=== PATIENT | male | born 1950 | race Native Hawaiian/Other Pacific Islander ===

== ENCOUNTER 2017-04-13 13:43 | Inpatient (IN) | payer OTHER ==
[2017-04-13 13:55] VITALS: BMI 20.6
--- NOTE | 2017-04-13 14:30 | ED PDOC ---
Arrival/HPI - General Historian: Patient - History of Present Illness Time/Duration: Prior to Arrival Symptom Onset: Sudden Symptom Course: Other Context: Home - General Chief Complaint: Abnormal Labs Time Seen by Provider: 04/13/17 14:06 - History of Present Illness Narrative History of Present Illness (Text): 04/13/17 14:27 66 year old female with past medical history of tonsilar carcinoma, CKD stage III, HTN, HLD, CAD s/p PCI, gout, recent PEG removal presents for hyperkalemia. Patient states that he was seen by transverse abdominal muscle surgeon yesterday who sergio blood work. The results of the blood work came back today and showed elevated K. Patient was told to go to ED. Patient was treated with chemo and radiation 8 months ago for tonsilar carcinoma. Patient had recent EGD 1.5 months ago with removal of PEG tube. (Shavon Owens) Past Medical History - Provider Review Nursing Documentation Reviewed: Yes - Travel History Have you recently traveled outside [place] w/in the past 3 mons?: No - Infectious Disease Hx of Infectious Diseases: None - Tetanus Immunization Tetanus Immunization: Unknown - Cardiac Hx Cardiac Disorders: Yes Hx PR: No Hx Hypertension: Yes Other/Comment: cardiac sent placed - Pulmonary Hx Respiratory Disorders: Yes (TONSIL CA STAGE 4) Other/Comment: LUNG LESION - Neurological Hx Neurological Disorder: Yes HX Cerebrovascular Accident: No Hx Dizziness: Yes Hx Syncope: Yes Hx Transient Ischemic Attacks (TIA): No - HEENT Hx HEENT Disorder: Yes Other/Comment: H/O CA OF TONSILS - Renal Hx Renal Disorder: No - Endocrine/Metabolic Hx Endocrine Disorders: Yes Hx Diabetes Mellitus Type 2: Yes - Hematological/Oncological Hx Blood Disorders: Yes Hx Blood Transfusions: No Hx Blood Transfusion Reaction: No Hx Cancer: Yes Hx Chemotherapy: Yes (AND RADIATION 2016) - Integumentary Hx Dermatological Disorder: Yes - Musculoskeletal/Rheumatological Hx Musculoskeletal Disorders: Yes Hx Falls: No Hx Fractures: No Hx Gout: Yes - Gastrointestinal Hx Gastrointestinal Disorders: Yes Other/Comment: H/O CA OF TONSILS - Genitourinary/Gynecological Hx Genitourinary Disorders: No - Psychiatric Hx Psychophysiologic Disorder: Yes Hx Depression: Yes Hx Substance Use: No - Surgical History Hx Cardiac Catheterization: Yes Hx Coronary Stent: Yes Other/Comment: PEG reverse - Anesthesia Hx Anesthesia: Yes Hx Anesthesia Reactions: No Hx Malignant Hyperthermia: No Family/Social History - Physician Review Nursing Documentation Reviewed: Yes Family/Social History: Unknown Family HX Smoking Status: Never Smoked Hx Alcohol Use: No Hx Substance Use: No Allergies/Home Meds Allergies/Adverse Reactions: Allergies No Known Allergies Allergy (Verified 04/13/17 13:55) Home Medications: Home Meds Medication Instructions Recorded Confirmed Colchicine [Mitigare] 0.6 mg PEG BID 04/30/16 04/13/17 Gabapentin 300 mg PO TID 04/30/16 04/13/17 DULoxetine [Cymbalta] 60 mg PO DAILY 08/02/16 04/13/17 Losartan [Cozaar] 50 mg PO DAILY 10/27/16 04/13/17 Clopidogrel [Plavix] 75 mg PO DAILY 04/13/17 04/13/17 Review of Systems - Review of Systems Constitutional: Normal. absent: Weight Change Eyes: Normal. absent: Vision Changes ENT: Normal. absent: Sore Throat, Rhinorrhea Respiratory: Normal. absent: SOB, Cough, Sputum, Wheezing Cardiovascular: Normal. absent: Chest Pain, Palpitations Gastrointestinal: Normal. absent: Abdominal Pain, Constipation, Diarrhea, Nausea, Vomiting Genitourinary Male: Normal. absent: Dysuria, Frequency, Hematuria Musculoskeletal: Normal. absent: Arthralgias, Back Pain Skin: Normal. absent: Rash, Pruritis, Skin Lesions Neurological: Normal. absent: Headache, Dizziness, Focal Weakness Endocrine: Normal. absent: Diaphoresis Hemo/Lymphatic: Normal. absent: Adenopathy Psychiatric: Normal. absent: Anxiety, Depression Physical Exam Vital Signs Reviewed: Yes Temperature: Afebrile Blood Pressure: Hypotensive Pulse: Regular Respiratory Rate: Normal Appearance: Positive for: Well-Appearing, Non-Toxic, Comfortable Pain Distress: None Mental Status: Positive for: Alert and Oriented X 3 - Systems Exam Head: Present: Atraumatic, Normocephalic Pupils: Present: PERRL Extroacular Muscles: Present: EOMI Conjunctiva: Present: Normal Mouth: Present: Moist Mucous Membranes Respiratory/Chest: Present: Clear to Auscultation, Good Air Exchange. No: Respiratory Distress, Accessory Muscle Use, Wheezes Cardiovascular: Present: Regular Rate and Rhythm, Normal S1, S2, Peripheal Pulses Present. No: Murmurs Abdomen: Present: Normal Bowel Sounds. No: Tenderness, Distention, Peritoneal Signs Lower Extremity: Present: Normal Inspection, NORMAL PULSES. No: Edema, CALF TENDERNESS Neurological: Present: GCS=15, Speech Normal Skin: Present: Warm, Dry, Normal Color. No: Rashes, Diaphoretic Psychiatric: Present: Alert, Oriented x 3, Normal Insight, Normal Concentration Medical Decision Making - EKG Interpretation Interpreted by ED Physician: Yes Type: 12 lead EKG ED Course and Treatment: 04/13/17 14:36 66 year old male presents for hyperkalemia found on outpatient blood work. Will check: EKG CBC BMP 04/13/17 16:27 K on blood work is noted to be 6.3 Patient will be given insulin 10 units with amp of D50 and kayexelate. No EKG changes noted so will not give calcium gluconate at this time. 04/13/17 16:[address] Kimbrough who accepts patient to hospitalists service with admission to tele floor (Shavon Owens) 04/13/17 17:34 Agree with resident history and physical, disposition and plan. Patient currently has no symptoms. Labs show elevated potassium with newly elevated BUN/ Cr. Patient also with new pancytopenia. Case was discussed with Dr. Kimbrough who will admit to his service. (Jairo Chawla) - Lab Interpretations Narrative Lab Interpretation (Text): 04/13/17 16:52 CBC shows pancytopenia. WBC 2.1 Hgb 8.1 Platelets of 79 K is noted to be 6.3 (Shavon Owens) Lab Results: 04/13/17 15:15 04/13/17 15:15 Lab Results 04/13/17 15:15: Magnesium 1.8 04/13/17 15:15: Sodium 133, Potassium 6.3 H* D, Chloride 102, Carbon Dioxide 21 , Anion Gap 16, BUN 43 H, Creatinine 2.3 H, Est GFR ( Amer) 35, Est GFR ( Non-Af Amer) 29, Random Glucose 108, Calcium 9.1 04/13/17 15:15: WBC 2.1 L* D, RBC 3.05 L, Hgb 8.1 L, Hct 24.5 L, MCV 80.3, MCH 26.6, MCHC 33.1, RDW 15.1 H, Plt Count 79 L - EKG Interpretation EKG Interpretation (Text): 04/13/17 14:[address] changes. normal axis and normal interval. LVh noted. No peaked T waves noted (Karim,Shavon) - Medication Orders Current Medication Orders: Discontinued Medications Albuterol/Ipratropium (Duoneb 3 Mg/0.5 Mg (3 Ml) Ud) 3 ml IH STAT STA Stop: 04/13/17 16:53 Dextrose (Dextrose 50% Inj) 50 ml IVP STAT STA Stop: 04/13/17 16:14 Last Admin: 04/13/17 16:36 Dose: 50 ml Insulin Human NPH (Humulin N) 10 units SC STAT STA Stop: 04/13/17 16:13 Last Admin: 04/13/17 16:36 Dose: 10 units Sodium Polystyrene Sulfonate (Kayexalate Oral Susp) 30 gm PO STAT STA Stop: 04/13/17 16:14 Last Admin: 04/13/17 16:36 Dose: 30 gm Disposition/Present on Arrival - Present on Arrival Any Indicators Present on Arrival: No History of DVT/PE: No History of Uncontrolled Diabetes: No Urinary Catheter: No History of Decub. Ulcer: No History Surgical Site Infection Following: None - Disposition Have Diagnosis and Disposition been Completed?: Yes Disposition Time: 16:58 Patient Plan: Admission - Disposition Diagnosis: Pancytopenia, Hyperkalemia Disposition: HOSPITALIZED Condition: STABLE
[2017-04-13 15:54] LABS: HEMOGLOBIN 8.1 g/dL (14.0-18.0); MEAN CELL VOLUME 80.3 fl (80.0-105.0); MEAN CORPUSCULAR HEMOGLOBIN 26.6 pg (25.0-35.0); MEAN CORPUSCULAR HGB CONC 33.1 g/dl (31.0-37.0); PLATELET COUNT 79 10^3/uL (120.0-450.0); RBC 3.05 10^6/uL (3.5-6.1); RED CELL DISTRIBUTION WIDTH 15.1 % (11.5-14.5)
[2017-04-13 15:59] LABS: CALCIUM 9.1 mg/dL (8.4-10.5)
[2017-04-13] MEDS ORDERED: Insulin Human NPH 1 UNITS/0.01 ML SC STA (16:12)
[2017-04-13] MEDS ORDERED: Dextrose 50% SYRINGE Inj (50 ml) IVP STA (16:13)
[2017-04-13] MEDS ORDERED: Sod Polystyrene Sulf 15 gm/60 ml Oral Susp PO STA (16:13)
[2017-04-13 16:30] LABS: WHITE BLOOD COUNT 2.1 10^3/ul (4.5-11.0)
[2017-04-13] MEDS ORDERED: Albuterol-Ipratrop 3 mg / 0.5 (3 ml) UD IH STA (16:52)
--- NOTE | 2017-04-13 18:32 | CP.PCM.HP ---
Past Patient History - Infectious Disease Hx of Infectious Diseases: None - Tetanus Immunizations Tetanus Immunization: Unknown - Past Medical History & Family History Past Medical History?: Yes - Past Social History Smoking Status: Never Smoked - CARDIAC Hx Cardiac Disorders: Yes Hx Heart Attack: No Hx Hypertension: Yes Other/Comment: cardiac sent placed - PULMONARY Hx Respiratory Disorders: Yes (TONSIL CA STAGE 4) Other/Comment: LUNG LESION - NEUROLOGICAL Hx Neurological Disorder: Yes HX Cerebrovascular Accident: No Hx Dizziness: Yes Hx Syncope: Yes Hx Transient Ischemic Attacks (TIA): No - HEENT Hx HEENT Problems: Yes Other/Comment: H/O CA OF TONSILS - RENAL Hx Chronic Kidney Disease: No - ENDOCRINE/METABOLIC Hx Endocrine Disorders: Yes Hx Diabetes Mellitus Type 2: Yes - HEMATOLOGICAL/ONCOLOGICAL Hx Blood Disorders: Yes Hx Blood Transfusions: No Hx Blood Transfusion Reaction: No Hx Cancer: Yes Hx Chemotherapy: Yes (AND RADIATION 2016) - INTEGUMENTARY Hx Dermatological Problems: Yes - MUSCULOSKELETAL/RHEUMATOLOGICAL Hx Musculoskeletal Disorders: Yes Hx Falls: No Hx Fractures: No Hx Gout: Yes - GASTROINTESTINAL Hx Gastrointestinal Disorders: Yes Other/Comment: H/O CA OF TONSILS - GENITOURINARY/GYNECOLOGICAL Hx Genitourinary Disorders: No - PSYCHIATRIC Hx Psychophysiologic Disorder: Yes Hx Depression: Yes Hx Substance Use: No - SURGICAL HISTORY Hx Cardiac Catheterization: Yes Hx Coronary Stent: Yes Other/Comment: PEG reverse - ANESTHESIA Hx Anesthesia: Yes Hx Anesthesia Reactions: No Hx Malignant Hyperthermia: No Meds Allergies/Adverse Reactions: Allergies Allergy/AdvReac Type Severity Reaction Status Date / Time No Known Allergies Allergy Verified 04/13/17 18:31 Results - Vital Signs Recent Vital Signs: Last Vital Signs Temp 97.9 F 04/13/17 18:05 Pulse 65 04/13/17 18:05 Resp 12 04/13/17 18:05 BP 114/80 04/13/17 18:05 Pulse Ox 100 04/13/17 18:05 - Labs Result Diagrams: 04/13/17 15:15 04/13/17 15:15
[2017-04-13] MEDS ORDERED: Sodium Chloride 0.9% 1,000 ML IV SCH (18:45)
--- NOTE | 2017-04-13 18:54 | CP.PCM.HP ---
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 Patient reports that he had lab work drawn yesterday, was told that his potassium levels were elevated and that he needed to go to the ED immediately. Patient has no complaints at this time. Denies any headaches, dizziness, visual changes, CP, SOB, abdominal pain, nausea /vomiting, fevers, chills, urinary symptoms, melena. Patient denies any recent chemotherapy. Potassium in the noted to be 6.3. EKG showed NSR, no peaked T waves. ED course: Insulin 10 units, 1 amp D50, Kayexylate 30mg x 1, Albuterol Allergies: NKDA Medications: See MAR Medical Hx: HTN, CKD, CAD s/p PCI, stage 4 tonsillar carcinoma, DM type 2 Surgical Hx: Peg tube placement and removal Social Hx: Denies alcohol, tobacco, drugs use, lives with family Present on Admission - Present on Admission Any Indicators Present on Admission: No History of DVT/PE: No History of Uncontrolled Diabetes: No Urinary Catheter: No Decubitus Ulcer Present: No Review of Systems - Review of Systems All systems: reviewed and no additional remarkable complaints except - Constitutional Constitutional: absent: Chills, Fever, Headache, Weight Gain, Weight Loss - EENT Eyes: absent: Change in Vision Ears: absent: Dizziness - Cardiovascular Cardiovascular: absent: Chest Pain, Dyspnea, Palpitations - Respiratory Respiratory: absent: Cough, Dyspnea, Wheezing - Gastrointestinal Gastrointestinal: absent: Abdominal Pain, Diarrhea, Nausea, Vomiting - Genitourinary Genitourinary: absent: Dysuria, Hematuria - Musculoskeletal Musculoskeletal: absent: Abnormal Gait, Neck Pain, Numbness, Tingling - Neurological Neurological: absent: Dizziness, Numbness, Headaches, Weakness - Psychiatric Psychiatric: absent: Anxiety, Depression Past Patient History - Infectious Disease Hx of Infectious Diseases: None - Tetanus Immunizations Tetanus Immunization: Unknown - Past Medical History & Family History Past Medical History?: Yes - Past Social History Smoking Status: Never Smoked - CARDIAC Hx Cardiac Disorders: Yes Hx Heart Attack: No Hx Hypertension: Yes Other/Comment: cardiac sent placed - PULMONARY Hx Respiratory Disorders: Yes (TONSIL CA STAGE 4) Other/Comment: LUNG LESION - NEUROLOGICAL Hx Neurological Disorder: Yes HX Cerebrovascular Accident: No Hx Dizziness: Yes Hx Syncope: Yes Hx Transient Ischemic Attacks (TIA): No - HEENT Hx HEENT Problems: Yes Other/Comment: H/O CA OF TONSILS - RENAL Hx Chronic Kidney Disease: No - ENDOCRINE/METABOLIC Hx Endocrine Disorders: Yes Hx Diabetes Mellitus Type 2: Yes - HEMATOLOGICAL/ONCOLOGICAL Hx Blood Disorders: Yes Hx Blood Transfusions: No Hx Blood Transfusion Reaction: No Hx Cancer: Yes Hx Chemotherapy: Yes (AND RADIATION 2016) - INTEGUMENTARY Hx Dermatological Problems: Yes - MUSCULOSKELETAL/RHEUMATOLOGICAL Hx Musculoskeletal Disorders: Yes Hx Falls: No Hx Fractures: No Hx Gout: Yes - GASTROINTESTINAL Hx Gastrointestinal Disorders: Yes Other/Comment: H/O CA OF TONSILS - GENITOURINARY/GYNECOLOGICAL Hx Genitourinary Disorders: No - PSYCHIATRIC Hx Psychophysiologic Disorder: Yes Hx Depression: Yes Hx Substance Use: No - SURGICAL HISTORY Hx Cardiac Catheterization: Yes Hx Coronary Stent: Yes Other/Comment: PEG reverse - ANESTHESIA Hx Anesthesia: Yes Hx Anesthesia Reactions: No Hx Malignant Hyperthermia: No Meds Allergies/Adverse Reactions: Allergies Allergy/AdvReac Type Severity Reaction Status Date / Time No Known Allergies Allergy Verified 04/13/17 18:36 Physical Exam - Constitutional Appears: Well, No Acute Distress - Head Exam Head Exam: ATRAUMATIC, NORMAL INSPECTION - Eye Exam Eye Exam: EOMI, Normal appearance Pupil Exam: NORMAL ACCOMODATION Additional comments: + Conjuctival pallor - ENT Exam ENT Exam: Mucous Membranes Moist - Neck Exam Neck exam: Positive for: Full Rom - Respiratory Exam Respiratory Exam: Clear to Auscultation Bilateral, NORMAL BREATHING PATTERN. absent: Rales, Rhonchi, Wheezes - Cardiovascular Exam Cardiovascular Exam: REGULAR RHYTHM, +S1, +S2 - GI/Abdominal Exam GI & Abdominal Exam: Normal Bowel Sounds, Soft. absent: Distended, Rebound, Rigid - Extremities Exam Extremities exam: Positive for: normal inspection, pedal pulses present. Negative for: calf tenderness - Back Exam Back exam: NORMAL INSPECTION - Neurological Exam Neurological exam: Alert, CN II-XII Intact, Oriented x3 - Psychiatric Exam Psychiatric exam: Normal Affect, Normal Mood - Skin Skin Exam: Normal Color, Warm Results - Vital Signs Recent Vital Signs: Last Vital Signs Temp 97.9 F 04/13/17 18:05 Pulse 65 04/13/17 18:05 Resp 12 04/13/17 18:05 BP 114/80 04/13/17 18:05 Pulse Ox 100 04/13/17 18:05 - Labs Result Diagrams: 04/13/17 15:15 04/13/17 15:15 Assessment & Plan - Assessment and Plan (Free Text) Assessment: 66 yo male pmhx of stage 4 tonsil CA, CKD, HTN, CAD s/p PCI on Plavix presents with Hyperkalemia Plan: 1. Hyperkalemia -Potassium 6.3 on admission, likely secondary to acute on chronic kidney disease -EKG showing NSR, no peaked T waves -Denies recent NSAID use -Recieved kayexylate, insulin, amp D50, albuterol in the ED -Will repeat potassium in 4 hours -F/U am labs -Monitor on telemetry -Will hold Losartan at this time 2. Acute on Chronic Kidney Disease, likely 2/2 dehydration -Baseline Cr 1.6, Cr on admission 2.3 -F/U urine electrolytes, urinalysis -Gentle hydration NS @ 75cc/hr -F/U am labs -Avoid nephrotoxic medications 3. Pancytopenia -Hx of tonsillar CA, Denies recent chemotherapy -Likely secondary to bone marrow suppression -Calculate Absolute Neutrophil count (ANC) -F/U retic count, anemia work up, peripheral blood smear -Heme/Onc consulted, f/u recommendations 4. Hx of Hypertension -Patient on Losartan at home -In the setting of hyperkalemia and acute on chronic kidney disease, will hold Losartan -BPs on the low side currently -Gentle hydration with NS @ 75cc/hr -If BPs become elevated, consider restarting beta topher -Continue to monitor vitals 5. Hx of CAD with PCI -Will continue Plavix 75 mg daily 6. Hx of DM type 2 -Accuchecks HS, ISS -Gabapentin TID for peripheral neuropathy 7. Stage 4 Tonsillar Carcinoma -S/P chemo and radiation -Heme/onc on consult, f/u recommendations 8. GI/DVT ppx -Pepcid -SCDs Jeni Deng PGY-1 <Luis E PARTIDA,Tony - Last Filed: 04/14/17 15:08> Results - Vital Signs Recent Vital Signs: Last Vital Signs Temp 98 F 04/14/17 12:00 Pulse 90 04/14/17 12:12 Resp 18 04/14/17 12:00 BP 138/75 04/14/17 12:12 Pulse Ox 100 04/14/17 07:30 - Labs Result Diagrams: 04/14/17 04:10 04/14/17 14:40 Labs: Laboratory Results - last 24 hr 04/13/17 04/13/17 04/13/17 21:22 21:50 22:29 WBC RBC Hgb Hct MCV MCH MCHC RDW Plt Count Gran % Lymph % (Auto) [place] % (Auto) Eos % (Auto) Baso % (Auto) Gran # Lymph # [place] # Eos # Baso # Neutrophils % (Manual) Band Neutrophils % Lymphocytes % (Manual) Atypical Lymphs % Monocytes % (Manual) Eosinophils % (Manual) Basophils % (Manual) Platelet Evaluation Poikilocytosis (manual Anisocytosis (manual) Microcytosis (manual) Tear Drop Cells Ovalocytes Retic Count Sodium 137 Potassium 6.0 H* Chloride 106 Carbon Dioxide 19 L Anion Gap 18 BUN 40 H Creatinine 2.0 H Est GFR ( Amer) 41 Est GFR (Non-Af Amer) 34 POC Glucose (mg/dL) 50 L 76 Random Glucose 75 Calcium 9.4 Phosphorus Magnesium Iron TIBC % Saturation Ferritin Total Bilirubin AST ALT Alkaline Phosphatase Total Creatine Kinase Total Protein Albumin Globulin Albumin/Globulin Ratio Vitamin B12 Folate Urine Color Urine Appearance Urine pH Ur Specific Drummonds Urine Protein Urine Glucose (UA) Urine Ketones Urine Blood Urine Nitrate Urine Bilirubin Urine Urobilinogen Ur Leukocyte Esterase Ur Random Creatinine Ur Random Sodium 04/14/17 04/14/17 04/14/17 01:00 01:00 01:00 WBC RBC Hgb Hct MCV MCH MCHC RDW Plt Count Gran % Lymph % (Auto) [place] % (Auto) Eos % (Auto) Baso % (Auto) Gran # Lymph # [place] # Eos # Baso # Neutrophils % (Manual) Band Neutrophils % Lymphocytes % (Manual) Atypical Lymphs % Monocytes % (Manual) Eosinophils % (Manual) Basophils % (Manual) Platelet Evaluation Poikilocytosis (manual Anisocytosis (manual) Microcytosis (manual) Tear Drop Cells Ovalocytes Retic Count Sodium Potassium Chloride Carbon Dioxide Anion Gap BUN Creatinine Est GFR ( Amer) Est GFR (Non-Af Amer) POC Glucose (mg/dL) Random Glucose Calcium Phosphorus Magnesium Iron TIBC % Saturation Ferritin Total Bilirubin AST ALT Alkaline Phosphatase Total Creatine Kinase Total Protein Albumin Globulin Albumin/Globulin Ratio Vitamin B12 Folate Urine Color Yellow Urine Appearance Clear Urine pH 6.0 Ur Specific Drummond[place] <= 1.005 Urine Protein Negative Urine Glucose (UA) Negative Urine Ketones Negative Urine Blood Negative Urine Nitrate Negative Urine Bilirubin Negative Urine Urobilinogen 0.2 Ur Leukocyte Esterase Negative Ur Random Creatinine 28 Ur Random Sodium 63 04/14/17 04/14/17 04/14/17 04:10 04:10 04:10 WBC 2.1 L* RBC 3.24 L Hgb 8.5 L Hct 25.9 L MCV 79.9 L MCH 26.2 MCHC 32.8 RDW 15.2 H Plt Count 79 L Gran % Featherer Lymph % (Auto) Featherer Sheridan % (Auto) Featherer Eos % (Auto) Featherer Baso % (Auto) Featherer Gran # Featherer Lymph # Featherer Sheridan # Featherer Eos # Featherer Baso # Featherer Neutrophils % (Manual) 75 H Band Neutrophils % 1 Lymphocytes % (Manual) 9 L Atypical Lymphs % 1 H Monocytes % (Manual) 4 Eosinophils % (Manual) 8 H Basophils % (Manual) 2 H Platelet Evaluation Low Poikilocytosis (manual 1+ Anisocytosis (manual) Slight Microcytosis (manual) 1+ Tear Drop Cells Slight Ovalocytes Slight Retic Count 0.62 Sodium 139 Potassium 5.9 H* Chloride 108 H Carbon Dioxide 21 Anion Gap 16 BUN 35 H Creatinine 1.9 H Est GFR ( Amer) 43 Est GFR (Non-Af Amer) 36 POC Glucose (mg/dL) Random Glucose 81 Calcium 9.4 Phosphorus 5.3 H Magnesium 1.8 Iron TIBC % Saturation Ferritin 93.3 Total Bilirubin 0.3 AST 31 ALT 50 Alkaline Phosphatase 89 Total Creatine Kinase Total Protein 7.2 Albumin 3.9 Globulin 3.3 Albumin/Globulin Ratio 1.2 Vitamin B12 732 Folate 10.1 Urine Color Urine Appearance Urine pH Ur Specific Drummond[place] Urine Protein Urine Glucose (UA) Urine Ketones Urine Blood Urine Nitrate Urine Bilirubin Urine Urobilinogen Ur Leukocyte Esterase Ur Random Creatinine Ur Random Sodium 04/14/17 04/14/17 04/14/17 04:10 07:22 10:06 WBC RBC Hgb Hct MCV MCH MCHC RDW Plt Count Gran % Lymph % (Auto) [place] % (Auto) Eos % (Auto) Baso % (Auto) Gran # Lymph # [place] # Eos # Baso # Neutrophils % (Manual) Band Neutrophils % Lymphocytes % (Manual) Atypical Lymphs % Monocytes % (Manual) Eosinophils % (Manual) Basophils % (Manual) Platelet Evaluation Poikilocytosis (manual Anisocytosis (manual) Microcytosis (manual) Tear Drop Cells Ovalocytes Retic Count Sodium Potassium Chloride Carbon Dioxide Anion Gap BUN Creatinine Est GFR ( Amer) Est GFR (Non-Af Amer) POC Glucose (mg/dL) 86 130 H Random Glucose Calcium Phosphorus Magnesium Iron 55 TIBC 289 % Saturation 19 L Ferritin Total Bilirubin AST ALT Alkaline Phosphatase Total Creatine Kinase Total Protein Albumin Globulin Albumin/Globulin Ratio Vitamin B12 Folate Urine Color Urine Appearance Urine pH Ur Specific [place] Urine Protein Urine Glucose (UA) Urine Ketones Urine Blood Urine Nitrate Urine Bilirubin Urine Urobilinogen Ur Leukocyte Esterase Ur Random Creatinine Ur Random Sodium 04/14/17 04/14/17 11:36 14:40 WBC RBC Hgb Hct MCV MCH MCHC RDW Plt Count Gran % Lymph % (Auto) [place] % (Auto) Eos % (Auto) Baso % (Auto) Gran # Lymph # [place] # Eos # Baso # Neutrophils % (Manual) Band Neutrophils % Lymphocytes % (Manual) Atypical Lymphs % Monocytes % (Manual) Eosinophils % (Manual) Basophils % (Manual) Platelet Evaluation Poikilocytosis (manual Anisocytosis (manual) Microcytosis (manual) Tear Drop Cells Ovalocytes Retic Count Sodium 137 Potassium 5.2 H Chloride 108 H Carbon Dioxide 20 L Anion Gap 14 BUN 31 H Creatinine 1.8 H Est GFR ( Amer) 46 Est GFR (Non-Af Amer) 38 POC Glucose (mg/dL) 89 Random Glucose 105 Calcium 8.7 Phosphorus Magnesium Iron TIBC % Saturation Ferritin Total Bilirubin AST ALT Alkaline Phosphatase Total Creatine Kinase 85 Total Protein Albumin Globulin Albumin/Globulin Ratio Vitamin B12 Folate Urine Color Urine Appearance Urine pH Ur Specific [place] Urine Protein Urine Glucose (UA) Urine Ketones Urine Blood Urine Nitrate Urine Bilirubin Urine Urobilinogen Ur Leukocyte Esterase Ur Random Creatinine Ur Random Sodium Attending/Attestation - Attestation I have personally seen and examined this patient.: Yes I have fully participated in the care of the patient.: Yes I have reviewed all pertinent clinical information: Yes Notes (Text): 04/14/17 15:05 Patient was seen and examined with medical claims representative. 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 We will check Reticulocyte count, LDH level, Peripheral smear and will also get Hematology consultation for the evaluation of Pancytopenia. Management plan was discussed in detail with patient Education was provided.
[2017-04-13 21:49] LABS: CALCIUM 9.4 mg/dL (8.4-10.5)
[2017-04-13] MEDS: Insulin Lispro (humaLOG) LOW Coverage SC SCH (22:00)
[2017-04-13] MEDS ORDERED: Pneumococcal 23-Valent Vaccine IM ONE (22:50)
--- NOTE | 2017-04-14 00:21 | CARD ---
APPROVED REPORT EKG Measurement Heart [id number] <Conclusion> Normal sinus rhythm Minimal voltage criteria for LVH, may be normal variant Borderline ECG
[2017-04-14 02:50] LABS: URINE BILIRUBIN NEGATIVE (NEGATIVE); URINE BLOOD NEGATIVE (NEGATIVE); URINE GLUCOSE (UA) NEGATIVE (NEGATIVE); URINE LEUKOCYTE ESTERASE NEGATIVE Leu/uL (NEGATIVE); URINE NITRATE NEGATIVE (NEGATIVE); URINE PROTEIN NEGATIVE mg/dL (<30 mg/dL); URINE UROBILINOGEN 0.2 E.U./dL (<1 E.U./dL)
[2017-04-14 02:52] LABS: URINE APPEARANCE CLEAR (CLEAR); URINE COLOR YELLOW (YELLOW)
[2017-04-14 06:21] VITALS: O2SAT 100
[2017-04-14] MEDS ORDERED: Dextrose 5%/0.9% NS 1,000 ML IV SCH (06:30)
[2017-04-14 06:41] LABS: HEMOGLOBIN 8.5 g/dL (14.0-18.0); MEAN CELL VOLUME 79.9 fl (80.0-105.0); MEAN CORPUSCULAR HEMOGLOBIN 26.2 pg (25.0-35.0); MEAN CORPUSCULAR HGB CONC 32.8 g/dl (31.0-37.0); PLATELET COUNT 79 10^3/uL (120.0-450.0); RBC 3.24 10^6/uL (3.5-6.1); RED CELL DISTRIBUTION WIDTH 15.2 % (11.5-14.5)
[2017-04-14 06:51] LABS: ALBUMIN 3.9 g/dL (3.0-4.8); CALCIUM 9.4 mg/dL (8.4-10.5); MAGNESIUM 1.8 mg/dL (1.7-2.2)
[2017-04-14 06:52] LABS: ALB/GLOB RATIO 1.2 (1.1-1.8)
[2017-04-14 06:59] LABS: % IRON SATURATION 19 % (20-55); IRON 55 ug/dL (45-180); TOTAL IRON BINDING CAPACITY 289 ug/dL (261-462)
[2017-04-14 07:00] LABS: WHITE BLOOD COUNT 2.1 10^3/ul (4.5-11.0)
[2017-04-14] MEDS: Albuterol-Ipratrop 3 mg / 0.5 (3 ml) UD IH SCH ×2 (07:25→11:26)
[2017-04-14] MEDS ORDERED: Dextrose 50% SYRINGE Inj (50 ml) IVP ONE (07:48)
[2017-04-14] MEDS ORDERED: Insulin Human NPH 1 UNITS/0.01 ML SC STA (07:49)
[2017-04-14] MEDS: Insulin Lispro (humaLOG) LOW Coverage SC SCH ×3 (08:20→17:40)
[2017-04-14] MEDS ORDERED: Sod Polystyrene Sulf 15 gm/60 ml Oral Susp PO ONE (08:47)
[2017-04-14 08:52] LABS: ATYPICAL LYMPHOCYTE 1 % (0.0-0.0); BAND 1 % (0-2); BASOPHIL 2 % (0.0-1.0); EOSINOPHIL 8 % (0.0-3.0); LYMPHOCYTE 9 % (22.0-35.0); MONOCYTE 4 % (1.0-6.0); NEUTROPHIL 75 % (50.0-70.0)
[2017-04-14 08:53] LABS: ANISOCYTOSIS SLIGHT; OVALOCYTES SLIGHT; PLATELET ESTIMATE LOW (NORMAL); POIKILOCYTOSIS 1+; TEAR DROP CELLS SLIGHT
[2017-04-14 08:54] LABS: MICROCYTOSIS 1+
[2017-04-14] MEDS: Dextrose 5%/0.9% NS 1,000 ML IV SCH ×2 (10:05→10:33)
[2017-04-14 11:36] VITALS: BP 138/75; RESP 18
[2017-04-14 12:28] VITALS: TEMP 98
[2017-04-14 12:40] LABS: FERRITIN 93.3 ng/mL
[2017-04-14 13:11] LABS: FOLATE 10.1 ng/mL
[2017-04-14 15:01] LABS: CALCIUM 8.7 mg/dL (8.4-10.5)
--- NOTE | 2017-04-14 15:22 | CP.PCM.DIS ---
<Jeni Deng - Last Filed: 04/14/17 16:11> Provider - Provider Date of Admission: 04/13/17 16:55 Attending physician: Tony Kimbrough MD Consults: Heme/Onc: Dr Brown Time Spent in preparation of Discharge (in minutes): 33 Hospital Course - Lab Results Lab Results: Most Recent Lab Values WBC 2.1 10^3/ul (4.5-11.0) L* 04/14/17 04:10 RBC 3.24 10^6/uL (3.5-6.1) L 04/14/17 04:10 Hgb 8.5 g/dL (14.0-18.0) L 04/14/17 04:10 Hct 25.9 % (42.0-52.0) L 04/14/17 04:10 MCV 79.9 fl (80.0-105.0) L 04/14/17 04:10 MCH 26.2 pg (25.0-35.0) 04/14/17 04:10 MCHC 32.8 g/dl (31.0-37.0) 04/14/17 04:10 RDW 15.2 % (11.5-14.5) H 04/14/17 04:10 Plt Count 79 10^3/uL (120.0-450.0) L 04/14/17 04:10 Gran % Special Procedures Technologist 04/14/17 04:10 Lymph % (Auto) Special Procedures Technologist 04/14/17 04:10 [place] % (Auto) Special Procedures Technologist 04/14/17 04:10 Eos % (Auto) Special Procedures Technologist 04/14/17 04:10 Baso % (Auto) Special Procedures Technologist 04/14/17 04:10 Gran # Special Procedures Technologist 04/14/17 04:10 Lymph # Special Procedures Technologist 04/14/17 04:10 [place] # Special Procedures Technologist 04/14/17 04:10 Eos # Special Procedures Technologist 04/14/17 04:10 Baso # Special Procedures Technologist 04/14/17 04:10 Neutrophils % (Manual) 75 % (50.0-70.0) H 04/14/17 04:10 Band Neutrophils % 1 % (0-2) 04/14/17 04:10 Lymphocytes % (Manual) 9 % (22.0-35.0) L 04/14/17 04:10 Atypical Lymphs % 1 % (0.0-0.0) H 04/14/17 04:10 Monocytes % (Manual) 4 % (1.0-6.0) 04/14/17 04:10 Eosinophils % (Manual) 8 % (0.0-3.0) H 04/14/17 04:10 Basophils % (Manual) 2 % (0.0-1.0) H 04/14/17 04:10 Platelet Evaluation Low (NORMAL) 04/14/17 04:10 Poikilocytosis (manual 1+ 04/14/17 04:10 Anisocytosis (manual) Slight 04/14/17 04:10 Microcytosis (manual) 1+ 04/14/17 04:10 Tear Drop Cells Slight 04/14/17 04:10 Ovalocytes Slight 04/14/17 04:10 Retic Count 0.62 % (0.5-1.5) 04/14/17 04:10 Sodium 137 mmol/L (132-148) 04/14/17 14:40 Potassium 5.2 mmol/L (3.6-5.0) H 04/14/17 14:40 Chloride 108 mmol/L (98-107) H 04/14/17 14:40 Carbon Dioxide 20 mmol/L (21-33) L 04/14/17 14:40 Anion Gap 14 (10-20) 04/14/17 14:40 BUN 31 mg/dL (7-21) H 04/14/17 14:40 Creatinine 1.8 mg/dL (0.5-1.4) H 04/14/17 14:40 Est GFR ( Amer) 46 04/14/17 14:40 Est GFR (Non-Af Amer) 38 04/14/17 14:40 POC Glucose (mg/dL) 89 mg/dL (65-110) 04/14/17 11:36 Random Glucose 105 mg/dL (70-110) 04/14/17 14:40 Calcium 8.7 mg/dL (8.4-10.5) 04/14/17 14:40 Phosphorus 5.3 mg/dL (2.5-4.5) H 04/14/17 04:10 Magnesium 1.8 mg/dL (1.7-2.2) 04/14/17 04:10 Iron 55 ug/dL (45-180) 04/14/17 04:10 TIBC 289 ug/dL (261-462) 04/14/17 04:10 % Saturation 19 % (20-55) L 04/14/17 04:10 Ferritin 93.3 ng/mL 04/14/17 04:10 Total Bilirubin 0.3 mg/dL (0.2-1.3) 04/14/17 04:10 AST 31 U/L (15-59) 04/14/17 04:10 ALT 50 U/L (7-56) 04/14/17 04:10 Alkaline Phosphatase 89 U/L (38-133) 04/14/17 04:10 Total Creatine Kinase 85 U/L (35-230) 04/14/17 14:40 Total Protein 7.2 g/dL (5.8-8.3) 04/14/17 04:10 Albumin 3.9 g/dL (3.0-4.8) 04/14/17 04:10 Globulin 3.3 gm/dL 04/14/17 04:10 Albumin/Globulin Ratio 1.2 (1.1-1.8) 04/14/17 04:10 Vitamin B12 732 pg/mL (239-931) 04/14/17 04:10 Folate 10.1 ng/mL 04/14/17 04:10 Urine Color Yellow (YELLOW) 04/14/17 01:00 Urine Appearance Clear (CLEAR) 04/14/17 01:00 Urine pH 6.0 (4.7-8.0) 04/14/17 01:00 Ur Specific [place] <= 1.005 (1.005-1.035) 04/14/17 01:00 Urine Protein Negative mg/dL (<30 mg/dL) 04/14/17 01:00 Urine Glucose (UA) Negative mg/dL (NEGATIVE) 04/14/17 01:00 Urine Ketones Negative mg/dL (NEGATIVE) 04/14/17 01:00 Urine Blood Negative (NEGATIVE) 04/14/17 01:00 Urine Nitrate Negative (NEGATIVE) 04/14/17 01:00 Urine Bilirubin Negative (NEGATIVE) 04/14/17 01:00 Urine Urobilinogen 0.2 E.U./dL (<1 E.U./dL) 04/14/17 01:00 Ur Leukocyte Esterase Negative Ivis/uL (NEGATIVE) 04/14/17 01:00 Ur Random Creatinine 28 mg/dL 04/14/17 01:00 Ur Random Sodium 63 meq/L 04/14/17 01:00 - Hospital Course Hospital Course: Patient is a 66 yo M with past medical hx of 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 Patient reports that he had lab work drawn yesterday, was told that his potassium levels were elevated and that he needed to go to the ED immediately. Patient has no complaints at this time. Denies any headaches, dizziness, visual changes, CP, SOB, abdominal pain, nausea /vomiting, fevers, chills, urinary symptoms, melena. Patient denies any recent chemotherapy. Potassium in the noted to be 6.3. EKG showed NSR, no peaked T waves. In the ED, patient was given Insulin 10 units, 1 amp D50, Kayexylate 30mg x 1, Albuterol. Patient was admitted for observation with telemetry. Patient was found to be pancytopenic. Heme/onc was consulted and on the case. Pancytopenia was stable, likely secondary to delayed bone marrow suppression as patient has received chemo and radiation in the past. Might need bone marrow biopsy as an outpatient , discussed with Dr Brown, patient is to follow up with him. Was found to have acute on chronic kidney disease. UA was negative. FeNa was calculated to be 3.3 % which suggests Intrinsic etiology. Cr improved with gentle hydration. For HTN , losartan was held and patient was started on Hydralazine 25mg QID. Repeat potassium was noted to be 6.0 then 5.9 subsequently. Patient was given insulin 10 units, albuterol treatment, 1 amp D50, and kayexylate. EKG at that time showed NSR, no peaked T waves. Patient remained asymptomatic. Potassium was later rechecked in the afternoon and was noted to be 5.2. On day of discharge, patient was medically stable. Instructed to discontinue Losartan and to continue Hydralazine 25mg TID for HTN. Patient also instructed to avoid foods rich in potassium. All questions and concerns were addressed. Discharge Exam - Head Exam Head Exam: ATRAUMATIC, NORMAL INSPECTION - Eye Exam Eye Exam: EOMI, Normal appearance Pupil Exam: NORMAL ACCOMODATION - ENT Exam ENT Exam: Mucous Membranes Moist - Neck Exam Neck exam: Full Rom - Respiratory Exam Respiratory Exam: Clear to PA & Lateral, NORMAL BREATHING PATTERN. absent: Rales, Rhonchi, Wheezes - Cardiovascular Exam Cardiovascular Exam: REGULAR RHYTHM, +S1, +S2 - GI/Abdominal Exam GI & Abdominal Exam: Normal Bowel Sounds, Soft. absent: Guarding, Rebound, Rigid - Extremities Exam Extremities exam: full ROM, normal capillary refill, normal inspection, pedal pulses present - Back Exam Back exam: NORMAL INSPECTION - Neurological Exam Neurological exam: Alert, CN II-XII Intact, Normal Gait, Oriented x3 - Psychiatric Exam Psychiatric exam: Normal Mood - Skin Skin Exam: Dry, Warm Discharge Plan - Discharge Medications Prescriptions: hydrALAZINE [Apresoline] 25 mg PO TID #90 tab - Follow Up Plan Condition: STABLE Disposition: HOME/ ROUTINE Instructions: Potassium Content of Foods List (DC), Hyperkalemia (DC), Chronic Dysphagia (DC) Additional Instructions: Patient clear for discharge home. Patient to follow up with PMD and Heme/Onc within 1 week. Avoid foods with high potassium (bananas etc). Please hold Losartan and continue taking Hydralazine 25mg TID. <Luis E PARTIDA,Tony - Last Filed: 04/15/17 16:29> Provider - Provider Date of Admission: 04/13/17 16:55 Attending physician: Tony Kimbrough MD Hospital Course - Lab Results Lab Results: Most Recent Lab Values WBC 2.1 10^3/ul (4.5-11.0) L* 04/14/17 04:10 RBC 3.24 10^6/uL (3.5-6.1) L 04/14/17 04:10 Hgb 8.5 g/dL (14.0-18.0) L 04/14/17 04:10 Hct 25.9 % (42.0-52.0) L 04/14/17 04:10 MCV 79.9 fl (80.0-105.0) L 04/14/17 04:10 MCH 26.2 pg (25.0-35.0) 04/14/17 04:10 MCHC 32.8 g/dl (31.0-37.0) 04/14/17 04:10 RDW 15.2 % (11.5-14.5) H 04/14/17 04:10 Plt Count 79 10^3/uL (120.0-450.0) L 04/14/17 04:10 Gran % Special Procedures Technologist 04/14/17 04:10 Lymph % (Auto) Special Procedures Technologist 04/14/17 04:10 [place] % (Auto) Special Procedures Technologist 04/14/17 04:10 Eos % (Auto) Special Procedures Technologist 04/14/17 04:10 Baso % (Auto) Special Procedures Technologist 04/14/17 04:10 Gran # Special Procedures Technologist 04/14/17 04:10 Lymph # Special Procedures Technologist 04/14/17 04:10 [place] # Special Procedures Technologist 04/14/17 04:10 Eos # Special Procedures Technologist 04/14/17 04:10 Baso # Special Procedures Technologist 04/14/17 04:10 Neutrophils % (Manual) 75 % (50.0-70.0) H 04/14/17 04:10 Band Neutrophils % 1 % (0-2) 04/14/17 04:10 Lymphocytes % (Manual) 9 % (22.0-35.0) L 04/14/17 04:10 Atypical Lymphs % 1 % (0.0-0.0) H 04/14/17 04:10 Monocytes % (Manual) 4 % (1.0-6.0) 04/14/17 04:10 Eosinophils % (Manual) 8 % (0.0-3.0) H 04/14/17 04:10 Basophils % (Manual) 2 % (0.0-1.0) H 04/14/17 04:10 Platelet Evaluation Low (NORMAL) 04/14/17 04:10 Poikilocytosis (manual 1+ 04/14/17 04:10 Anisocytosis (manual) Slight 04/14/17 04:10 Microcytosis (manual) 1+ 04/14/17 04:10 Tear Drop Cells Slight 04/14/17 04:10 Ovalocytes Slight 04/14/17 04:10 Retic Count 0.62 % (0.5-1.5) 04/14/17 04:10 Sodium 137 mmol/L (132-148) 04/14/17 14:40 Potassium 5.2 mmol/L (3.6-5.0) H 04/14/17 14:40 Chloride 108 mmol/L (98-107) H 04/14/17 14:40 Carbon Dioxide 20 mmol/L (21-33) L 04/14/17 14:40 Anion Gap 14 (10-20) 04/14/17 14:40 BUN 31 mg/dL (7-21) H 04/14/17 14:40 Creatinine 1.8 mg/dL (0.5-1.4) H 04/14/17 14:40 Est GFR ( Amer) 46 04/14/17 14:40 Est GFR (Non-Af Amer) 38 04/14/17 14:40 POC Glucose (mg/dL) 142 mg/dL (65-110) H 04/14/17 16:04 Random Glucose 105 mg/dL (70-110) 04/14/17 14:40 Calcium 8.7 mg/dL (8.4-10.5) 04/14/17 14:40 Phosphorus 5.3 mg/dL (2.5-4.5) H 04/14/17 04:10 Magnesium 1.8 mg/dL (1.7-2.2) 04/14/17 04:10 Iron 55 ug/dL (45-180) 04/14/17 04:10 TIBC 289 ug/dL (261-462) 04/14/17 04:10 % Saturation 19 % (20-55) L 04/14/17 04:10 Ferritin 93.3 ng/mL 04/14/17 04:10 Total Bilirubin 0.3 mg/dL (0.2-1.3) 04/14/17 04:10 AST 31 U/L (15-59) 04/14/17 04:10 ALT 50 U/L (7-56) 04/14/17 04:10 Alkaline Phosphatase 89 U/L (38-133) 04/14/17 04:10 Total Creatine Kinase 85 U/L (35-230) 04/14/17 14:40 Total Protein 7.2 g/dL (5.8-8.3) 04/14/17 04:10 Albumin 3.9 g/dL (3.0-4.8) 04/14/17 04:10 Globulin 3.3 gm/dL 04/14/17 04:10 Albumin/Globulin Ratio 1.2 (1.1-1.8) 04/14/17 04:10 Vitamin B12 732 pg/mL (239-931) 04/14/17 04:10 Folate 10.1 ng/mL 04/14/17 04:10 Urine Color Yellow (YELLOW) 04/14/17 01:00 Urine Appearance Clear (CLEAR) 04/14/17 01:00 Urine pH 6.0 (4.7-8.0) 04/14/17 01:00 Ur Specific [place] <= 1.005 (1.005-1.035) 04/14/17 01:00 Urine Protein Negative mg/dL (<30 mg/dL) 04/14/17 01:00 Urine Glucose (UA) Negative mg/dL (NEGATIVE) 04/14/17 01:00 Urine Ketones Negative mg/dL (NEGATIVE) 04/14/17 01:00 Urine Blood Negative (NEGATIVE) 04/14/17 01:00 Urine Nitrate Negative (NEGATIVE) 04/14/17 01:00 Urine Bilirubin Negative (NEGATIVE) 04/14/17 01:00 Urine Urobilinogen 0.2 E.U./dL (<1 E.U./dL) 04/14/17 01:00 Ur Leukocyte Esterase Negative Ivis/uL (NEGATIVE) 04/14/17 01:00 Ur Random Creatinine 28 mg/dL 04/14/17 01:00 Ur Random Sodium 63 meq/L 04/14/17 01:00 Attending/Attestation - Attestation I have personally seen and examined this patient.: Yes I have fully participated in the care of the patient.: Yes I have reviewed all pertinent clinical information, including history, physical exam and plan: Yes Notes (Text): 04/15/17 16:15 Patient was seen and examined with manager of medical. 66 yrs old male with PMH of stage 4 tonsillar carcinoma (s/p chemo and radiation in 2016), HTN, DM type 2, CKD stage III, CAP s/p PCI is admitted with hyperkalemia, acute on chronic renal failure and Pancytopenia.Patient hyperkalemia has improved.ARB has been discontinued due to hyperkalemia.He has been started on Hydralazine for Hypertension. His renal functions has come back close to his base line. Pancytopenia is stable, case was discussed by manager of medical with who recommended out patient follow up , will need bone marrow biopsy. Patient will follow up with PCP and hematology as out patient. Management plan was discussed in detail with patient Education was provided.
--- NOTE | 2017-04-14 15:31 | CP.PCM.CON ---
History of Present Illness - History of Present Illness History of Present Illness: 66 year old male with a history of DM, HTN, CAD, tonsilar cancer s/p chemoradiation completed in 08/2016, lung lesion admitted with hyperkalemia. He reports to doing well overall but was found to have an elevated potassium level by his docotor. He was told to come to the ER for further treatment. He feels well but still has issues with dysphagia with solids. Past medical history: DM, HTN, CAD, tonsilar cancer with b/l cervical lymphadenopathy, lung lesion Past surgical history: PEG tube Family history: Denies hematologic and oncologic problems Social history: Denies tobacco, alcohol, and illicit drug use. Allergies: NKA Review of systems: All remaining review of systems including HEENT, cardiovascular, respiratory, gastrointestinal, genitourinary, musculoskeletal, dermatologic, neurologic, and psychiatric are negative unless mentioned in the HPI. Past Patient History - Infectious Disease Hx of Infectious Diseases: None - Tetanus Immunizations Tetanus Immunization: Unknown - Past Medical History & Family History Past Medical History?: Yes - Past Social History Smoking Status: Never Smoked - CARDIAC Hx Cardiac Disorders: Yes (CAD) Hx Hypertension: Yes Other/Comment: cardiac stent placed - PULMONARY Hx Respiratory Disorders: Yes (TONSIL CA STAGE 4) Other/Comment: LUNG LESION - NEUROLOGICAL Hx Neurological Disorder: Yes HX Cerebrovascular Accident: No Hx Dizziness: Yes Hx Transient Ischemic Attacks (TIA): No - HEENT Hx HEENT Problems: Yes Other/Comment: H/O CA OF TONSILS - RENAL Hx Chronic Kidney Disease: No - ENDOCRINE/METABOLIC Hx Endocrine Disorders: Yes Hx Diabetes Mellitus Type 2: Yes - HEMATOLOGICAL/ONCOLOGICAL Hx Blood Disorders: Yes Hx Cancer: Yes Hx Chemotherapy: Yes (AND RADIATION 2016) Hx Metastesis: Yes - INTEGUMENTARY Hx Dermatological Problems: Yes - MUSCULOSKELETAL/RHEUMATOLOGICAL Hx Musculoskeletal Disorders: Yes Hx Falls: No Hx Fractures: No Hx Gout: Yes - GASTROINTESTINAL Hx Gastrointestinal Disorders: Yes (PEG IN AND OUT) Other/Comment: H/O CA OF TONSILS - GENITOURINARY/GYNECOLOGICAL Hx Genitourinary Disorders: Yes - PSYCHIATRIC Hx Psychophysiologic Disorder: Yes Hx Depression: Yes Hx Substance Use: No - SURGICAL HISTORY Hx Surgeries: Yes (CARDIAC STENT) Hx Cardiac Catheterization: Yes Hx Coronary Stent: Yes Other/Comment: PEG reverse - ANESTHESIA Hx Anesthesia: Yes Hx Anesthesia Reactions: No Hx Malignant Hyperthermia: No Meds Home Medications: Home Medication List Medication Instructions Recorded Confirmed Type hydrALAZINE [Apresoline] 25 mg PO TID #90 tab 04/14/17 Rx Allergies/Adverse Reactions: Allergies Allergy/AdvReac Type Severity Reaction Status Date / Time No Known Allergies Allergy Verified 04/13/17 18:36 - Medications Medications: Current Medications Albuterol/Ipratropium (Duoneb 3 Mg/0.5 Mg (3 Ml) Ud) 3 ml IH [id number] [facility] Last Admin: 04/14/17 11:26 Dose: 3 ml Clopidogrel Bisulfate (Plavix) 75 mg PO DAILY [facility] Last Admin: 04/14/17 09:16 Dose: 75 mg Famotidine (Pepcid) 20 mg PO 1000 [facility] Last Admin: 04/14/17 09:17 Dose: 20 mg Gabapentin (Neurontin) 300 mg PO TID [facility] PRN Reason: Protocol Last Admin: 04/14/17 13:45 Dose: 300 mg Hydralazine HCl (Apresoline) 25 mg PO Q6H [facility] Last Admin: 04/14/17 12:12 Dose: 25 mg Dextrose/Sodium Chloride (Dextrose 5%/0.9% Ns 1000 Ml) 1,000 mls @ 100 mls/hr IV .Q10H [facility] Last Admin: 04/14/17 10:05 Dose: 100 mls/hr Insulin Human Lispro (Humalog Low) 0 units SC ACHS [facility] PRN Reason: Protocol Last Admin: 04/14/17 13:58 Dose: Not Given Physical Exam - Head Exam Head Exam: ATRAUMATIC - Eye Exam Eye Exam: Normal appearance - ENT Exam ENT Exam: Mucous Membranes Dry - Respiratory Exam Respiratory Exam: NORMAL BREATHING PATTERN - Cardiovascular Exam Cardiovascular Exam: +S1, +S2 - GI/Abdominal Exam GI & Abdominal Exam: Normal Bowel Sounds - Extremities Exam Extremities exam: Positive for: normal inspection - Neurological Exam Neurological exam: Oriented x3 - Psychiatric Exam Psychiatric exam: Normal Affect, Normal Mood - Skin Skin Exam: Warm Results - Vital Signs Recent Vital Signs: Last Vital Signs Temp 98 F 04/14/17 12:00 Pulse 90 04/14/17 12:12 Resp 18 04/14/17 12:00 BP 138/75 04/14/17 12:12 Pulse Ox 100 04/14/17 07:30 - Labs Result Diagrams: 04/14/17 04:10 04/14/17 14:40 Labs: Laboratory Results - last 24 hr 04/13/17 04/13/17 04/13/17 21:22 21:50 22:29 WBC RBC Hgb Hct MCV MCH MCHC RDW Plt Count Gran % Lymph % (Auto) [place] % (Auto) Eos % (Auto) Baso % (Auto) Gran # Lymph # [place] # Eos # Baso # Neutrophils % (Manual) Band Neutrophils % Lymphocytes % (Manual) Atypical Lymphs % Monocytes % (Manual) Eosinophils % (Manual) Basophils % (Manual) Platelet Evaluation Poikilocytosis (manual Anisocytosis (manual) Microcytosis (manual) Tear Drop Cells Ovalocytes Retic Count Sodium 137 Potassium 6.0 H* Chloride 106 Carbon Dioxide 19 L Anion Gap 18 BUN 40 H Creatinine 2.0 H Est GFR ( Amer) 41 Est GFR (Non-Af Amer) 34 POC Glucose (mg/dL) 50 L 76 Random Glucose 75 Calcium 9.4 Phosphorus Magnesium Iron TIBC % Saturation Ferritin Total Bilirubin AST ALT Alkaline Phosphatase Total Creatine Kinase Total Protein Albumin Globulin Albumin/Globulin Ratio Vitamin B12 Folate Urine Color Urine Appearance Urine pH Ur Specific [place] Urine Protein Urine Glucose (UA) Urine Ketones Urine Blood Urine Nitrate Urine Bilirubin Urine Urobilinogen Ur Leukocyte Esterase Ur Random Creatinine Ur Random Sodium 04/14/17 04/14/17 04/14/17 01:00 01:00 01:00 WBC RBC Hgb Hct MCV MCH MCHC RDW Plt Count Gran % Lymph % (Auto) [place] % (Auto) Eos % (Auto) Baso % (Auto) Gran # Lymph # [place] # Eos # Baso # Neutrophils % (Manual) Band Neutrophils % Lymphocytes % (Manual) Atypical Lymphs % Monocytes % (Manual) Eosinophils % (Manual) Basophils % (Manual) Platelet Evaluation Poikilocytosis (manual Anisocytosis (manual) Microcytosis (manual) Tear Drop Cells Ovalocytes Retic Count Sodium Potassium Chloride Carbon Dioxide Anion Gap BUN Creatinine Est GFR ( Amer) Est GFR (Non-Af Amer) POC Glucose (mg/dL) Random Glucose Calcium Phosphorus Magnesium Iron TIBC % Saturation Ferritin Total Bilirubin AST ALT Alkaline Phosphatase Total Creatine Kinase Total Protein Albumin Globulin Albumin/Globulin Ratio Vitamin B12 Folate Urine Color Yellow Urine Appearance Clear Urine pH 6.0 Ur Specific [place] <= 1.005 Urine Protein Negative Urine Glucose (UA) Negative Urine Ketones Negative Urine Blood Negative Urine Nitrate Negative Urine Bilirubin Negative Urine Urobilinogen 0.2 Ur Leukocyte Esterase Negative Ur Random Creatinine 28 Ur Random Sodium 63 04/14/17 04/14/17 04/14/17 04:10 04:10 04:10 WBC 2.1 L* RBC 3.24 L Hgb 8.5 L Hct 25.9 L MCV 79.9 L MCH 26.2 MCHC 32.8 RDW 15.2 H Plt Count 79 L Gran % Mortgage Loan Officer Lymph % (Auto) [employer] Officer [place] % (Auto) Mortgage Loan Officer Eos % (Auto) Mortgage Loan Officer Baso % (Auto) Mortgage Loan Officer Gran # Mortgage Loan Officer Lymph # Mortgage Loan Officer [place] # Mortgage Loan Officer Eos # Mortgage Loan Officer Baso # Mortgage Loan Officer Neutrophils % (Manual) 75 H Band Neutrophils % 1 Lymphocytes % (Manual) 9 L Atypical Lymphs % 1 H Monocytes % (Manual) 4 Eosinophils % (Manual) 8 H Basophils % (Manual) 2 H Platelet Evaluation Low Poikilocytosis (manual 1+ Anisocytosis (manual) Slight Microcytosis (manual) 1+ Tear Drop Cells Slight Ovalocytes Slight Retic Count 0.62 Sodium 139 Potassium 5.9 H* Chloride 108 H Carbon Dioxide 21 Anion Gap 16 BUN 35 H Creatinine 1.9 H Est GFR ( Amer) 43 Est GFR (Non-Af Amer) 36 POC Glucose (mg/dL) Random Glucose 81 Calcium 9.4 Phosphorus 5.3 H Magnesium 1.8 Iron TIBC % Saturation Ferritin 93.3 Total Bilirubin 0.3 AST 31 ALT 50 Alkaline Phosphatase 89 Total Creatine Kinase Total Protein 7.2 Albumin 3.9 Globulin 3.3 Albumin/Globulin Ratio 1.2 Vitamin B12 732 Folate 10.1 Urine Color Urine Appearance Urine pH Ur Specific [place] Urine Protein Urine Glucose (UA) Urine Ketones Urine Blood Urine Nitrate Urine Bilirubin Urine Urobilinogen Ur Leukocyte Esterase Ur Random Creatinine Ur Random Sodium 04/14/17 04/14/17 04/14/17 04:10 07:22 10:06 WBC RBC Hgb Hct MCV MCH MCHC RDW Plt Count Gran % Lymph % (Auto) [place] % (Auto) Eos % (Auto) Baso % (Auto) Gran # Lymph # [place] # Eos # Baso # Neutrophils % (Manual) Band Neutrophils % Lymphocytes % (Manual) Atypical Lymphs % Monocytes % (Manual) Eosinophils % (Manual) Basophils % (Manual) Platelet Evaluation Poikilocytosis (manual Anisocytosis (manual) Microcytosis (manual) Tear Drop Cells Ovalocytes Retic Count Sodium Potassium Chloride Carbon Dioxide Anion Gap BUN Creatinine Est GFR ( Amer) Est GFR (Non-Af Amer) POC Glucose (mg/dL) 86 130 H Random Glucose Calcium Phosphorus Magnesium Iron 55 TIBC 289 % Saturation 19 L Ferritin Total Bilirubin AST ALT Alkaline Phosphatase Total Creatine Kinase Total Protein Albumin Globulin Albumin/Globulin Ratio Vitamin B12 Folate Urine Color Urine Appearance Urine pH Ur Specific [place] Urine Protein Urine Glucose (UA) Urine Ketones Urine Blood Urine Nitrate Urine Bilirubin Urine Urobilinogen Ur Leukocyte Esterase Ur Random Creatinine Ur Random Sodium 04/14/17 04/14/17 11:36 14:40 WBC RBC Hgb Hct MCV MCH MCHC RDW Plt Count Gran % Lymph % (Auto) [place] % (Auto) Eos % (Auto) Baso % (Auto) Gran # Lymph # [place] # Eos # Baso # Neutrophils % (Manual) Band Neutrophils % Lymphocytes % (Manual) Atypical Lymphs % Monocytes % (Manual) Eosinophils % (Manual) Basophils % (Manual) Platelet Evaluation Poikilocytosis (manual Anisocytosis (manual) Microcytosis (manual) Tear Drop Cells Ovalocytes Retic Count Sodium 137 Potassium 5.2 H Chloride 108 H Carbon Dioxide 20 L Anion Gap 14 BUN 31 H Creatinine 1.8 H Est GFR ( Amer) 46 Est GFR (Non-Af Amer) 38 POC Glucose (mg/dL) 89 Random Glucose 105 Calcium 8.7 Phosphorus Magnesium Iron TIBC % Saturation Ferritin Total Bilirubin AST ALT Alkaline Phosphatase Total Creatine Kinase 85 Total Protein Albumin Globulin Albumin/Globulin Ratio Vitamin B12 Folate Urine Color Urine Appearance Urine pH Ur Specific [place] Urine Protein Urine Glucose (UA) Urine Ketones Urine Blood Urine Nitrate Urine Bilirubin Urine Urobilinogen Ur Leukocyte Esterase Ur Random Creatinine Ur Random Sodium Assessment & Plan (1) Pancytopenia Assessment and Plan: likely treatment related to prior chemo and radiation outpatient f/u Status: Acute (2) Tonsil cancer Assessment and Plan: s/p chemo and radiation on surveillance; lung lesion outpatient imaging Thank you for this interesting consult. Status: Chronic
[2017-04-14 17:38] VITALS: PULSE 96
--- NOTE | 2017-04-15 00:49 | CARD ---
APPROVED REPORT EKG Measurement Heart [id number] <Conclusion> Normal sinus rhythm Moderate voltage criteria for LVH, may be normal variant Borderline ECG
== END 2017-04-14 18:27 | disposition home or self-care (01) | DRG 296 ==
LOC: ED 13:43 → ERH 16:55 → 2RSO 20:29
PROVIDERS: ADMIT Internal Medicine; ATTEND Internal Medicine
DX: E87.5 Hyperkalemia (principal); D61.818 Other pancytopenia; E86.0 Dehydration; E11.22 Type 2 diabetes mellitus with diabetic chronic kidney disease; N18.3 Chronic kidney disease, stage 3 (moderate); E11.42 Type 2 diabetes mellitus with diabetic polyneuropathy; I12.9 Hypertensive chronic kidney disease with stage 1 through stage 4 chronic kidney disease, or unspecified chronic kidney disease; Z95.5 Presence of coronary angioplasty implant and graft; Z92.21 Personal history of antineoplastic chemotherapy; Z92.3 Personal history of irradiation; Z85.818 Personal history of malignant neoplasm of other sites of lip, oral cavity, and pharynx

== ENCOUNTER 2017-09-01 22:14 | Emergency (ER) | payer MEDICARE, OTHER ==
[2017-09-01 22:14] VITALS: BMI 20.6
[2017-09-01 22:59] VITALS: TEMP 97.8; O2SAT 100
--- NOTE | 2017-09-01 23:17 | ED PDOC ---
Arrival/HPI - General Chief Complaint: ENT Problem Time Seen by Provider: 09/01/17 22:28 Historian: Patient - History of Present Illness Narrative History of Present Illness (Text): 09/01/17 22:50 This 66 year old female with past medical history of tonsilar carcinoma, CKD stage III, HTN, HLD, CAD s/p PCI, gout, presents to this ED c/o epistaxis x 3 hours. Patient admits similar symptoms in the past, but epistaxis would last for 1 minute. Patient denies other somatic complains. Denies sob, fever, trauma, dizziness, or abnormal gait. Time/Duration: 1-3 hours Context: Home Past Medical History - Provider Review Nursing Documentation Reviewed: Yes - Infectious Disease Hx of Infectious Diseases: None - Tetanus Immunization Tetanus Immunization: Unknown - Cardiac Hx Cardiac Disorders: Yes (CAD) Hx Hypertension: Yes Other/Comment: cardiac stent placed - Pulmonary Hx Respiratory Disorders: Yes (TONSIL CA STAGE 4) Other/Comment: LUNG LESION - Neurological Hx Neurological Disorder: Yes HX Cerebrovascular Accident: No Hx Dizziness: Yes Hx Transient Ischemic Attacks (TIA): No - HEENT Hx HEENT Disorder: Yes Other/Comment: H/O CA OF TONSILS - Renal Hx Renal Disorder: No - Endocrine/Metabolic Hx Endocrine Disorders: Yes Hx Diabetes Mellitus Type 2: Yes - Hematological/Oncological Hx Blood Disorders: Yes Hx Cancer: Yes Hx Chemotherapy: Yes (AND RADIATION 2016) Hx Metastasis: Yes - Integumentary Hx Dermatological Disorder: Yes - Musculoskeletal/Rheumatological Hx Musculoskeletal Disorders: Yes Hx Falls: No Hx Fractures: No Hx Gout: Yes - Gastrointestinal Hx Gastrointestinal Disorders: Yes (PEG IN AND OUT) Other/Comment: H/O CA OF TONSILS - Genitourinary/Gynecological Hx Genitourinary Disorders: Yes - Psychiatric Hx Psychophysiologic Disorder: Yes Hx Depression: Yes Hx Substance Use: No - Surgical History Hx Cardiac Catheterization: Yes Hx Coronary Stent: Yes Other/Comment: PEG reverse - Anesthesia Hx Anesthesia: Yes Hx Anesthesia Reactions: No Hx Malignant Hyperthermia: No Family/Social History - Physician Review Nursing Documentation Reviewed: Yes Family/Social History: Other (noncontributory) Smoking Status: Never Smoked Hx Alcohol Use: No Hx Substance Use: No Allergies/Home Meds Allergies/Adverse Reactions: Allergies No Known Allergies Allergy (Verified 09/01/17 22:35) Home Medications: Home Meds Medication Instructions Recorded Confirmed Colchicine [Mitigare] 0.6 mg PO BID 04/30/16 09/01/17 Gabapentin 300 mg PO TID 04/30/16 09/01/17 DULoxetine [Cymbalta] 60 mg PO DAILY 08/02/16 09/01/17 Clopidogrel [Plavix] 75 mg PO DAILY 04/13/17 09/01/17 Review of Systems - Review of Systems Constitutional: Normal. absent: Fatigue, Weight Change, Fevers Eyes: Normal. absent: Vision Changes ENT: Epistaxis Respiratory: Normal. absent: SOB, Cough Cardiovascular: Normal. absent: Chest Pain, Palpitations Gastrointestinal: Normal. absent: Abdominal Pain, Nausea, Vomiting Genitourinary Male: Normal Musculoskeletal: Normal Skin: Normal Neurological: Normal. absent: Headache, Dizziness, Focal Weakness, Gait Changes , Speech Changes, Facial Droop, Disequilibrium, Seizure Endocrine: Normal Hemo/Lymphatic: Normal Psychiatric: Normal Physical Exam Vital Signs Temp Pulse Resp BP Pulse Ox 09/01/17 22:36 97.8 F 84 17 170/92 H 100 09/01/17 22:35 97.8 F 84 18 170/92 H 100 Temperature: Afebrile Blood Pressure: Normal Pulse: Regular Respiratory Rate: Normal Appearance: Positive for: Well-Appearing, Non-Toxic, Comfortable Pain Distress: None Mental Status: Positive for: Alert and Oriented X 3 - Systems Exam Head: Present: Atraumatic, Normocephalic Pupils: Present: PERRL Extroacular Muscles: Present: EOMI Conjunctiva: Present: Normal Mouth: Present: Moist Mucous Membranes Nose (External): Present: Atraumatic Nose (Internal): Present: Epistaxis, Other (active bleeding from right nares) Neck: Present: Normal Range of Motion Respiratory/Chest: Present: Clear to Auscultation, Good Air Exchange. No: Respiratory Distress, Accessory Muscle Use Cardiovascular: Present: Regular Rate and Rhythm, Normal S1, S2. No: Murmurs Abdomen: Present: Normal Bowel Sounds. No: Tenderness, Distention, Peritoneal Signs Back: Present: Normal Inspection Upper Extremity: Present: Normal Inspection. No: Cyanosis, Edema Lower Extremity: Present: Normal Inspection. No: Edema Neurological: Present: GCS=15, CN II-XII Intact, Speech Normal Skin: Present: Warm, Dry, Normal Color. No: Rashes Psychiatric: Present: Alert, Oriented x 3, Normal Insight, Normal Concentration Medical Decision Making ED Course and Treatment: 09/02/17 00:31 Patient stated he feels well. He is not longer has a nose bleed. Patient denies dizziness. Patient stated he has a chronic anemia, and Dr. Brown Oncologist/spinner operator is aware of it. Patient understood to call Dr. Brown tomorrow regarding anemia, so he can review labs. He also understood to call Dr. Guthrie ENT office tomorrow to recheck him for epistaxis. Patient was prescribed ABX since he has a Rhino Rocket nasal packing. 09/02/17 00:34 I reviewed lab results with Dr. Raza. He stated patient is asymptomatic, and he has a history of chronic anemia. He should call hemalogist office tomorrow for revaluation as out patient. Re-evaluation Time: 00:34 Reassessment Condition: Re-examined, Improved - Lab Interpretations Lab Results: 09/01/17 23:10 09/01/17 23:10 Lab Results 09/01/17 23:10: Sodium 122 L, Potassium 4.7, Chloride 91 L, Carbon Dioxide 22, Anion Gap 14, BUN 24 H, Creatinine 1.5, Est GFR ( Amer) 57, Est GFR (Non- Af Amer) 47, Random Glucose 120 H, Calcium 8.7, Total Bilirubin 0.3, AST 28, ALT 38, Alkaline Phosphatase 78, Total Protein 7.3, Albumin 4.0, Globulin 3.2, Albumin/Globulin Ratio 1.3 09/01/17 23:10: PT 12.6 H, INR 1.15 H, APTT 32.0 09/01/17 23:10: WBC 3.5 L D, RBC 3.09 L, Hgb 7.7 L, Hct 23.3 L, MCV 75.4 L D, MCH 24.9 L, MCHC 33.0, RDW 14.7 H, Plt Count 90 L, Gran % 77.3 H, Lymph % (Auto ) 10.3 L, Lyman % (Auto) 7.8 H, Eos % (Auto) 4.3, Baso % (Auto) 0.3, Gran # 2.69 , Lymph # 0.4 L, Lyman # 0.3, Eos # 0.2, Baso # 0.01 I have reviewed the lab results: Yes Interpretation: No sign. chg./baseline - Procedure PROCEDURE NOTE (Text): 09/01/17 23:00 PROCEDURE: EPISTAXIS MANAGEMENT Performed by the emergency provider Consent: Informed consent was obtained after discussion of the risks, benefits, and alternatives to the procedure. Timeout: A timeout to verify the correct patient, procedure, and site was performed immediately prior to the procedure. Indication: Nasal bleeding control Location: right naris Medication: none Bleeding Source: POSTERIOR Cautery: none Packin.5 cm Rhino Rocket was positioned by me Post-procedure: Good hemostasis. The patient was observed following procedure and no repeat episode of bleeding was noted. Patient tolerated the procedure well with no immediate complications. Disposition/Present on Arrival - Present on Arrival Any Indicators Present on Arrival: No History of DVT/PE: No History of Uncontrolled Diabetes: No Urinary Catheter: No History of Decub. Ulcer: No History Surgical Site Infection Following: None - Disposition Have Diagnosis and Disposition been Completed?: Yes Diagnosis: Epistaxis, Chronic anemia Disposition: HOME/ ROUTINE Disposition Time: 00:36 Patient Plan: Discharge Condition: GOOD Discharge Instructions (ExitCare): Nosebleed (ED), Anemia (ED) Additional Instructions: Call Blood specialist Dr. Brown Oncologist tomorrow for follow up visit. Call Dr. Guthrie Nose specialist tomorrow for revaluation of nose bleeding, and to recheck nose packing. take medication as instructed. return to emergency if bleeding returns, fever, dizziness or worsen symptoms. Prescriptions: Cephalexin [Keflex] 500 mg PO QID #28 capsule Referrals: Fatuma Gibbs, [Primary Care Provider] - Follow up with primary Brian Guthrie DO [Staff Provider] - Follow up with primary Bin Brown MD [Staff Provider] - Follow up with primary Forms: [employer] (Danish)
[2017-09-01 23:43] LABS: BASO # 0.01 K/mm3 (0.0-2.0); BASO % 0.3 % (0.0-3.0); EOS # 0.2 (0.0-0.7); EOS % 4.3 % (1.5-5.0); GRAN # 2.69 (1.4-6.5); GRAN % 77.3 % (50.0-68.0); LYMPH # 0.4 (1.2-3.4); LYMPH % 10.3 % (22.0-35.0); MEAN CORPUSCULAR HEMOGLOBIN 24.9 pg (25.0-35.0); MONO # 0.3 (0.1-0.6); MONO % 7.8 % (1.0-6.0); PLATELET COUNT 90 10^3/uL (120.0-450.0); RBC 3.09 10^6/uL (3.5-6.1); RED CELL DISTRIBUTION WIDTH 14.7 % (11.5-14.5); WHITE BLOOD COUNT 3.5 10^3/ul (4.5-11.0)
[2017-09-01 23:59] LABS: INR 1.15 (0.93-1.08); PROTHROMBIN TIME 12.6 SECONDS (9.4-12.5)
[2017-09-02 00:03] LABS: ALB/GLOB RATIO 1.3 (1.1-1.8); CALCIUM 8.7 mg/dL (8.4-10.5)
[2017-09-02 00:06] LABS: HEMOGLOBIN 7.7 g/dL (14.0-18.0); MEAN CELL VOLUME 75.4 fl (80.0-105.0)
[2017-09-02 01:14] VITALS: BP 158/82; PULSE 82; RESP 18
== END 2017-09-02 01:07 | disposition home or self-care (01) ==
LOC: ED 22:14
DX: R04.0 Epistaxis (principal); D64.9 Anemia, unspecified; I10 Essential (primary) hypertension; E11.9 Type 2 diabetes mellitus without complications; Z86.73 Personal history of transient ischemic attack (TIA), and cerebral infarction without residual deficits

== ENCOUNTER 2017-09-25 21:35 | Inpatient (IN) | payer MEDICARE ==
[2017-09-25 22:06] VITALS: BMI 20.3
[2017-09-25] MEDS ORDERED: Sodium Chloride 0.9% 1,000 ML IV STA ×2 (22:44→23:39)
--- NOTE | 2017-09-25 23:02 | ED PDOC ---
Arrival/HPI - General Chief Complaint: Dizziness/Lightheaded Time Seen by Provider: 09/25/17 22:15 Historian: Patient - History of Present Illness Narrative History of Present Illness (Text): 09/25/17 22:55 67yo male with PMhx of Tonsillar CA present with complaint of dizziness. States his BS has being going up and down and causes him to be dizzy. Note that his BS was 75 at home when he was dizzy this evening. He states he drank Sugary water and thinks the BS went up. He denies visual changes, headache, focal weakness, chest pain, nausea, vomiting, any other complaint. Past Medical History - Provider Review Nursing Documentation Reviewed: Yes - Infectious Disease Hx of Infectious Diseases: None - Tetanus Immunization Tetanus Immunization: Unknown - Cardiac Hx Cardiac Disorders: Yes (CAD) Hx Hypertension: Yes Other/Comment: cardiac stent placed - Pulmonary Hx Respiratory Disorders: Yes (TONSIL CA STAGE 4) Other/Comment: LUNG LESION - Neurological Hx Neurological Disorder: Yes HX Cerebrovascular Accident: No Hx Dizziness: Yes Hx Transient Ischemic Attacks (TIA): No - HEENT Hx HEENT Disorder: Yes Other/Comment: H/O CA OF TONSILS - Renal Hx Renal Disorder: No - Endocrine/Metabolic Hx Endocrine Disorders: Yes Hx Diabetes Mellitus Type 2: Yes - Hematological/Oncological Hx Blood Disorders: Yes Hx Cancer: Yes Hx Chemotherapy: Yes (AND RADIATION 2016) Hx Metastasis: Yes - Integumentary Hx Dermatological Disorder: Yes - Musculoskeletal/Rheumatological Hx Musculoskeletal Disorders: Yes Hx Falls: No Hx Fractures: No Hx Gout: Yes - Gastrointestinal Hx Gastrointestinal Disorders: Yes (PEG IN AND OUT) Other/Comment: H/O CA OF TONSILS - Genitourinary/Gynecological Hx Genitourinary Disorders: Yes - Psychiatric Hx Psychophysiologic Disorder: Yes Hx Depression: Yes Hx Substance Use: No - Surgical History Hx Cardiac Catheterization: Yes Hx Coronary Stent: Yes Other/Comment: PEG reverse - Anesthesia Hx Anesthesia: Yes Hx Anesthesia Reactions: No Hx Malignant Hyperthermia: No Family/Social History - Physician Review Nursing Documentation Reviewed: Yes Family/Social History: Unknown Family HX Smoking Status: Never Smoked Hx Alcohol Use: No Hx Substance Use: No Allergies/Home Meds Allergies/Adverse Reactions: Allergies No Known Allergies Allergy (Verified 09/25/17 22:06) Home Medications: Home Meds Medication Instructions Recorded Confirmed Colchicine [Mitigare] 0.6 mg PO BID 04/30/16 09/25/17 Gabapentin 300 mg PO TID 04/30/16 09/25/17 DULoxetine [Cymbalta] 60 mg PO DAILY 08/02/16 09/25/17 Clopidogrel [Plavix] 75 mg PO DAILY 04/13/17 09/25/17 Review of Systems - Physician Review All systems were reviewed & negative as marked: Yes - Review of Systems Constitutional: Normal Eyes: Normal ENT: Normal Respiratory: Normal Cardiovascular: Normal Gastrointestinal: Normal Genitourinary Male: Normal Musculoskeletal: Normal Skin: Normal Neurological: Dizziness. absent: Headache, Focal Weakness, Gait Changes, Speech Changes Endocrine: Normal Hemo/Lymphatic: Normal Psychiatric: Normal Physical Exam Vital Signs Reviewed: Yes Vital Signs Temp Pulse Resp BP Pulse Ox 09/25/17 22:08 98.3 F 74 18 126/63 100 Temperature: Afebrile Blood Pressure: Normal Pulse: Regular Respiratory Rate: Normal Appearance: Positive for: Well-Appearing, Non-Toxic, Comfortable Pain Distress: None Mental Status: Positive for: Alert and Oriented X 3 Finger Stick Blood Glucose: 101 - Systems Exam Head: Present: Atraumatic, Normocephalic Pupils: Present: PERRL Extroacular Muscles: Present: EOMI Conjunctiva: Present: Normal Mouth: Present: Moist Mucous Membranes Neck: Present: Normal Range of Motion Respiratory/Chest: Present: Clear to Auscultation, Good Air Exchange. No: Respiratory Distress, Accessory Muscle Use Cardiovascular: Present: Regular Rate and Rhythm, Normal S1, S2. No: Murmurs Abdomen: Present: Normal Bowel Sounds. No: Tenderness, Distention, Peritoneal Signs Back: Present: Normal Inspection Upper Extremity: Present: Normal Inspection. No: Cyanosis, Edema Lower Extremity: Present: Normal Inspection. No: Edema Neurological: Present: GCS=15, CN II-XII Intact, Speech Normal, Motor Func Grossly Intact, Normal Sensory Function, Normal Cerebellar Funct, Norm Deep Tendon Reflexes, Gait Normal, Memory Normal, Normal 2Pt Descrimination Skin: Present: Warm, Dry, Normal Color. No: Rashes Psychiatric: Present: Alert, Oriented x 3, Normal Insight, Normal Concentration Medical Decision Making ED Course and Treatment: 09/26/17 00:32 PT with history of multiple episodes of hypolycemia and dizziness. 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 Urine electrolyte/Osmolality pending. Pt will be admitted for further treatment and evaluation. Head CT pending EKG NSR @72bpm Case was DW Dr. Rangel and she accepted pt for admission - Lab Interpretations Lab Results: 09/25/17 22:11 09/25/17 22:11 Lab Results 09/26/17 00:22: Urine Osmolality Pending, Ur Random Sodium 35, Ur Random Potassium 20.7 09/26/17 00:09: Urine Color Straw, Urine Appearance Clear, Urine pH 7.0, Ur Specific [place] <= 1.005, Urine Protein Negative, Urine Glucose (UA) Negative, Urine Ketones Negative, Urine Blood Negative, Urine Nitrate Negative, Urine Bilirubin Negative, Urine Urobilinogen 0.2, Ur Leukocyte Esterase Negative 09/25/17 22:11: Sodium 116 L*, Potassium 5.5 H, Chloride 83 L, Carbon Dioxide 23 , Anion Gap 15, BUN 24 H, Creatinine 1.4, Est GFR ( Amer) > 60, Est GFR ( Non-Af Amer) 51, Random Glucose 99, Calcium 9.0, Magnesium 1.4 L, Total Bilirubin 0.3, AST 29, ALT 39, Alkaline Phosphatase 79, Lactate Dehydrogenase 355, Total Creatine Kinase 59, Troponin I < 0.01, Total Protein 7.0, Albumin 3.6 , Globulin 3.4, Albumin/Globulin Ratio 1.1 09/25/17 22:11: PT 12.1, INR 1.06, APTT 32.0 09/25/17 22:11: WBC 8.3 D, RBC 3.23 L, Hgb 8.2 L, Hct 24.2 L, MCV 74.9 L, MCH 25.4, MCHC 33.9, RDW 13.8, Plt Count 87 L, Gran % 88.5 H, Lymph % (Auto) 6.3 L, Crisp % (Auto) 4.8, Eos % (Auto) 0.4 L, Baso % (Auto) 0.0, Gran # 7.33 H, Lymph # 0.5 L, Crisp # 0.4, Eos # 0.0, Baso # 0.00 - RAD Interpretation Radiology Orders: 09/25/17 23:38 HEAD W/O CONTRAST [CT] Stat - Medication Orders Current Medication Orders: Dextrose (Dextrose 50% Inj) 50 ml IVP ONCE PRN PRN Reason: Other Famotidine (Pepcid) 40 mg PO HS VALENCIA Hydralazine HCl (Apresoline) 10 mg IVP Q6 PRN PRN Reason: Systolic Blood Pressure Magnesium Sulfate 2 gm/ Sodium (Chloride) 104 mls @ 102 mls/hr IVPB ONCE ONE Stop: 09/26/17 02:10 Last Admin: 09/26/17 01:29 Dose: 102 mls/hr eMAR Start Stop Document 09/26/17 01:29 SS (Rec: 09/26/17 01:29 SS [id number]) Intravenous Solution Start Date 09/26/17 Start Time 01:29 Sodium Chloride (Sodium Chloride 0.9%) 1,000 mls @ 100 mls/hr IV .Q10H VALENCIA Last Admin: 09/26/17 01:29 Dose: 100 mls/hr eMAR Start Stop Document 09/26/17 01:29 SS (Rec: 09/26/17 01:29 SS [id number]) Intravenous Solution Start Date 09/26/17 Start Time 01:29 Insulin Human Lispro (Humalog Med) 0 units SC ACHS VALENCIA PRN Reason: Protocol Discontinued Medications Sodium Chloride (Sodium Chloride 0.9%) 1,000 mls @ 999 mls/hr IV .Q1H1M STA Stop: 09/26/17 00:39 Last Admin: 09/26/17 01:28 Dose: 999 mls/hr eMAR Start Stop Document 09/26/17 01:28 SS (Rec: 09/26/17 01:29 SS [id number]) Intravenous Solution Start Date 09/26/17 Start Time 00:00 End Date 09/26/17 End time 01:00 Total Infusion Time 60 Sodium Polystyrene Sulfonate (Kayexalate Susp) 30 gm PO STAT STA Stop: 09/26/17 00:02 Last Admin: 09/26/17 00:27 Dose: 30 gm Disposition/Present on Arrival - Present on Arrival Any Indicators Present on Arrival: No History of DVT/PE: No History of Uncontrolled Diabetes: No Urinary Catheter: No History of Decub. Ulcer: No History Surgical Site Infection Following: None - Disposition Have Diagnosis and Disposition been Completed?: Yes Diagnosis: Hyperkalemia, Hyponatremia, Dizziness Disposition: HOSPITALIZED Disposition Time: 12:10 Patient Plan: Admission Condition: FAIR
[2017-09-25 23:16] LABS: EOS % 0.4 % (1.5-5.0); GRAN # 7.33 (1.4-6.5); GRAN % 88.5 % (50.0-68.0); HEMOGLOBIN 8.2 g/dL (14.0-18.0); LYMPH # 0.5 (1.2-3.4); LYMPH % 6.3 % (22.0-35.0); MEAN CELL VOLUME 74.9 fl (80.0-105.0); MEAN CORPUSCULAR HEMOGLOBIN 25.4 pg (25.0-35.0); MEAN CORPUSCULAR HGB CONC 33.9 g/dl (31.0-37.0); MONO # 0.4 (0.1-0.6); MONO % 4.8 % (1.0-6.0); PLATELET COUNT 87 10^3/uL (120.0-450.0); RBC 3.23 10^6/uL (3.5-6.1); RED CELL DISTRIBUTION WIDTH 13.8 % (11.5-14.5); WHITE BLOOD COUNT 8.3 10^3/ul (4.5-11.0)
[2017-09-25 23:31] LABS: ALB/GLOB RATIO 1.1 (1.1-1.8); ALBUMIN 3.6 g/dL (3.0-4.8); ALT/SGPT 39 U/L (7-56); AST/SGOT 29 U/L (17-59); BLOOD UREA NITROGEN 24 mg/dL (7-21); GFR AFRICAN-AMERICAN > 60; GFR NON-AFRICAN AMERICAN 51; INR 1.06 (0.93-1.08); MAGNESIUM 1.4 mg/dL (1.7-2.2); PROTHROMBIN TIME 12.1 SECONDS (9.4-12.5)
[2017-09-25 23:38] LABS: TROPONIN I < 0.01 ng/mL
[2017-09-26] MEDS ORDERED: Sod Polystyrene Sulf 15 gm/60 ml Susp PO STA ×2 (00:01→06:00)
--- NOTE | 2017-09-26 00:12 | CP.PCM.HP ---
<Saran Dallas - Last Filed: 09/26/17 00:39> History of Present Illness - History of Present Illness History of Present Illness: CC: dizziness Subjective: HPI: Patient is a 67 year old male with past medical history of HTN, CKD, CAD s/p PCI , stage 4 tonsillar carcinoma, DM type 2 who presents to the emergency department for evaluation and treatment of dizziness. States that the dizziness began yesterday afternoon and was associated with nausea, blurry vision, and diaphoresis. Patient noted that his blood sugar was 65 at the start of these symptoms at which point he drank sugar water. His BG at home improved to 75 and his symptoms resolved. States that his blood glucoses and blood pressures have been fluctuating throughout the day more frequently without any provoking event. Patient denies intractable headache, fever, chills, ringing in the ears, chest pain, shortness of breath, abdominal pain, vomiting, diarrhea, constipation, and urinary symptoms. ROS: 12 point review of systems negative except as indicated in HPI PMHx: HTN, CKD, CAD s/p PCI, stage 4 tonsillar carcinoma, DM type 2 PSHx: Peg tube placement and removal Family Hx: denies Social Hx: denies ETOH use, tobacco use, illicit drug use Medications: Please see medication reconciliation PMD: Dr. Leiva [employer] Sales: Dr. Brown Pharmacy: [facility] Physical Examination: - Constitutional Appears: Non-toxic, No Acute Distress - Head Exam Head Exam: atraumatic, normocephalic - Eye Exam Eye Exam: Normal appearance, PERRL. absent: Scleral icterus - ENT Exam ENT Exam: Mucous Membranes Moist - Neck Exam Neck exam: Normal Inspection - Respiratory Exam Respiratory Exam: Normal Breathing Pattern - Cardiovascular Exam Cardiovascular Exam: +S1, +S2. absent: Gallop, JVD - GI/Abdominal Exam GI & Abdominal Exam: Normal Bowel Sounds, absent: Distended, Guarding, Pulsatile Mass, Rebound, Rigid - Extremities Exam Extremities exam: Negative for: calf tenderness - Neurological Exam Neurological exam: Patient is awake, alert, responds to verbal stimuli, answers questions appropriately, follows commands, and moves extremities past midline - Psychiatric Exam Psychiatric exam: Normal Affect, Normal Mood - Skin Skin Exam: warm and dry Assessment and Plan: Patient is a 67 year old male with past medical history of HTN, CKD, CAD s/p PCI , stage 4 tonsillar carcinoma, DM type 2 who was admitted for evaluation and treatment of dizziness. Dizziness - CT of head ordered by ED PA and is still pending at the time of admission - high risk fall precautions - terry hallpike maneuver negative - neuro consulted- appreciate recommendations Hyponatremia; Hypochloremia - IVF NS 100 - urine electrolytes, urine osmolality, serum osmolality ordered by ED PA however this is after 1 liter was given in ED - bmp q2 hours - nephrology consulted- appreciate recommendations Hyperkalemia - ekg reviewed and appreciated- NSR, twave morphology noted, HR 72 bpm, QTc 418 , - kayexylate given in ED - recheck via bmp Hypomagnesemia - repleted - will monitor closely via mag level Hx of Anemia - Hgb reviewed, trended, and appreciated- at baseline - monitor closely via CBC - iron, tibc, ferritin, peripheral smear pending Hx of Thrombcytopenia - platelet count is trended and appreciated- at baseline compared to previous two visits in 2017 - no signs of active bleed at this time - avoid heparin and protonix - consider heme/onc consult pending patients clinical course Hx of CKD - creatinine and Bun reviewed, trended, and appreciated - avoid nephrotoxins - continue IVF NS @ 100 - nephrology consulted- appreciate recommendations Hx of CAD - hold home plavix- need to confirm medication as patient does not know Hx of Htn - hold home hydralazine- need to confirm dosage prior to starting - hydralazine 5mg IV q6 prn SBP > 180, holding parameters- do not administer if HR is > 100 bpm Hx of Diabetes - hold home diabetic medications- please confirm meds with pharmacy - fingersticks ACHS - insulin sliding scale- lispro medium - resume diet as carb consistent - amp prn blood glucose less than 70 Hx of Stage 4 Tonsillar Carcinoma - resolved as per patient; s/p radiation and chemotherapy - no acute intervention at this time Prophylaxis - DVT ppx- scds - GI ppx- famotidine Patient case discussed with and plan approved by attending physician. 09/26/17 00:10 Present on Admission - Present on Admission Any Indicators Present on Admission: No Past Patient History - Infectious Disease Hx of Infectious Diseases: None - Tetanus Immunizations Tetanus Immunization: Unknown - Past Medical History & Family History Past Medical History?: Yes - Past Social History Smoking Status: Never Smoked - CARDIAC Hx Cardiac Disorders: Yes (CAD) Hx Hypertension: Yes Other/Comment: cardiac stent placed - PULMONARY Hx Respiratory Disorders: Yes (TONSIL CA STAGE 4) Other/Comment: LUNG LESION - NEUROLOGICAL Hx Neurological Disorder: Yes HX Cerebrovascular Accident: No Hx Dizziness: Yes Hx Transient Ischemic Attacks (TIA): No - HEENT Hx HEENT Problems: Yes Other/Comment: H/O CA OF TONSILS - RENAL Hx Chronic Kidney Disease: No - ENDOCRINE/METABOLIC Hx Endocrine Disorders: Yes Hx Diabetes Mellitus Type 2: Yes - HEMATOLOGICAL/ONCOLOGICAL Hx Blood Disorders: Yes Hx Cancer: Yes Hx Chemotherapy: Yes (AND RADIATION 2016) Hx Metastesis: Yes - INTEGUMENTARY Hx Dermatological Problems: Yes - MUSCULOSKELETAL/RHEUMATOLOGICAL Hx Musculoskeletal Disorders: Yes Hx Falls: No Hx Fractures: No Hx Gout: Yes - GASTROINTESTINAL Hx Gastrointestinal Disorders: Yes (PEG IN AND OUT) Other/Comment: H/O CA OF TONSILS - GENITOURINARY/GYNECOLOGICAL Hx Genitourinary Disorders: Yes - PSYCHIATRIC Hx Psychophysiologic Disorder: Yes Hx Depression: Yes Hx Substance Use: No - SURGICAL HISTORY Hx Cardiac Catheterization: Yes Hx Coronary Stent: Yes Other/Comment: PEG reverse - ANESTHESIA Hx Anesthesia: Yes Hx Anesthesia Reactions: No Hx Malignant Hyperthermia: No Meds Home Medications: Home Medication List Medication Instructions Recorded Confirmed Type Aspirin [Ecotrin] 81 mg PO DAILY #30 tabec 09/28/17 Rx Atorvastatin [Lipitor] 40 mg PO DIN #30 tab 09/28/17 Rx Clopidogrel [Plavix] 75 mg PO DAILY #30 tab 09/28/17 Rx Allergies/Adverse Reactions: Allergies Allergy/AdvReac Type Severity Reaction Status Date / Time No Known Allergies Allergy Verified 09/25/17 22:06 Results - Vital Signs Recent Vital Signs: Last Vital Signs Temp 98.3 F 09/25/17 22:08 Pulse 74 09/25/17 22:08 Resp 18 09/25/17 22:08 BP 126/63 09/25/17 22:08 Pulse Ox 100 09/25/17 22:08 - Labs Result Diagrams: 09/25/17 22:11 09/25/17 22:11 Labs: Laboratory Results - last 24 hr 09/25/17 09/25/17 09/25/17 22:11 22:11 22:11 WBC 8.3 D RBC 3.23 L Hgb 8.2 L Hct 24.2 L MCV 74.9 L MCH 25.4 MCHC 33.9 RDW 13.8 Plt Count 87 L Gran % 88.5 H Lymph % (Auto) 6.3 L Evans % (Auto) 4.8 Eos % (Auto) 0.4 L Baso % (Auto) 0.0 Gran # 7.33 H Lymph # 0.5 L Evans # 0.4 Eos # 0.0 Baso # 0.00 PT 12.1 INR 1.06 APTT 32.0 Sodium 116 L* Potassium 5.5 H Chloride 83 L Carbon Dioxide 23 Anion Gap 15 BUN 24 H Creatinine 1.4 Est GFR ( Amer) > 60 Est GFR (Non-Af Amer) 51 Random Glucose 99 Calcium 9.0 Magnesium 1.4 L Total Bilirubin 0.3 AST 29 ALT 39 Alkaline Phosphatase 79 Lactate Dehydrogenase 355 Total Creatine Kinase 59 Troponin I < 0.01 Total Protein 7.0 Albumin 3.6 Globulin 3.4 Albumin/Globulin Ratio 1.1 <Kelly Rangel - Last Filed: 09/28/17 18:54> Results - Vital Signs Recent Vital Signs: Last Vital Signs Temp 98.3 F 09/25/17 22:08 Pulse 78 09/26/17 04:03 Resp 18 09/26/17 04:03 BP 136/72 09/26/17 04:03 Pulse Ox 96 09/26/17 04:03 - Labs Result Diagrams: 09/28/17 06:35 09/28/17 06:35 Labs: Laboratory Results - last 24 hr 09/26/17 09/26/17 09/26/17 01:30 01:30 01:30 WBC RBC Hgb Hct MCV MCH MCHC RDW Plt Count MPV Gran % Lymph % (Auto) Evans % (Auto) Eos % (Auto) Baso % (Auto) Gran # Lymph # Evans # Eos # Baso # Sodium Potassium Chloride Carbon Dioxide Anion Gap BUN Creatinine Est GFR ( Amer) Est GFR (Non-Af Amer) Random Glucose Calcium Magnesium 1.7 Iron 15 L TIBC 283 % Saturation 5 L Triglycerides 39 Cholesterol 118 L LDL Cholesterol Direct 53 HDL Cholesterol 47 Free T4 TSH 3rd Generation 2.53 09/26/17 09/26/17 09/26/17 01:30 04:19 05:20 WBC 8.8 RBC 3.26 L Hgb 8.3 L Hct 24.6 L MCV 75.5 L MCH 25.5 MCHC 33.7 RDW 13.9 Plt Count 99 L MPV 10.7 Gran % 86.2 H Lymph % (Auto) 7.2 L Evans % (Auto) 5.7 Eos % (Auto) 0.8 L Baso % (Auto) 0.1 Gran # 7.54 H Lymph # 0.6 L Evans # 0.5 Eos # 0.1 Baso # 0.01 Sodium 124 L Potassium 5.5 H Chloride 93 L Carbon Dioxide 23 Anion Gap 14 BUN 20 Creatinine 1.4 Est GFR ( Amer) > 60 Est GFR (Non-Af Amer) 51 Random Glucose 88 Calcium 9.4 Magnesium Iron TIBC % Saturation Triglycerides Cholesterol LDL Cholesterol Direct HDL Cholesterol Free T4 0.98 TSH 3rd Generation
[2017-09-26 00:26] LABS: URINE BILIRUBIN NEGATIVE (NEGATIVE); URINE BLOOD NEGATIVE (NEGATIVE); URINE GLUCOSE (UA) NEGATIVE (NEGATIVE); URINE LEUKOCYTE ESTERASE NEGATIVE Leu/uL (NEGATIVE); URINE NITRATE NEGATIVE (NEGATIVE); URINE PROTEIN NEGATIVE mg/dL (<30 mg/dL); URINE UROBILINOGEN 0.2 E.U./dL (<1 E.U./dL)
[2017-09-26 00:32] LABS: URINE APPEARANCE CLEAR (CLEAR); URINE COLOR STRAW (YELLOW)
[2017-09-26] MEDS ORDERED: Magnesium Sulfate 2 GM in Sodium Chloride 0.9% 100 ML IVPB ONE (01:09)
[2017-09-26] MEDS ORDERED: Sodium Chloride 0.9% 1,000 ML IV SCH ×2 (01:15→05:55)
[2017-09-26] MEDS ORDERED: Dextrose 50% SYRINGE Inj (50 ml) IVP PRN (01:22)
[2017-09-26 02:36] LABS: IRON 15 ug/dL (45-180)
--- NOTE | 2017-09-26 02:42 | CT ---
EXAM: CT Head Without Intravenous Contrast CLINICAL HISTORY: 67 years old, male; Signs and symptoms; Dizziness TECHNIQUE: Axial computed tomography images of the head/brain without intravenous contrast. All CT scans at this facility use one or more dose reduction techniques, viz.: automated exposure control; ma/kV adjustment per patient size (including targeted exams where dose is matched to indication; i.e. head); or iterative reconstruction technique. Coronal and sagittal reformatted images were created and reviewed. COMPARISON: CT - HEAD W/O CONTRAST 2016-10-27 13:41 FINDINGS: Brain: Mild atrophy. No intracranial hemorrhage. No mass. Minimal decreased attenuation within periventricular white matter. No definite edema. Ventricles: No hydrocephalus. Bones/joints: No acute fracture. Soft tissues: Unremarkable. Vasculature: Atherosclerotic disease of intracranial arteries. Sinuses: Scattered minimal mucosal thickening. Mastoid air cells: No mastoid effusion. Orbits: Stable appearance of globes. IMPRESSION: 1. Nonspecific white matter changes. Acute infarction may be CT occult within first 24 hours. If a focal deficit persists, consider followup CT or MRI for further evaluation. 2. Incidental/non-acute findings are described above.
[2017-09-26 02:45] LABS: TOTAL IRON BINDING CAPACITY 283 ug/dL (261-462)
[2017-09-26 03:06] LABS: % IRON SATURATION 5 % (20-55); MAGNESIUM 1.7 mg/dL (1.7-2.2)
[2017-09-26 04:49] LABS: BLOOD UREA NITROGEN 20 mg/dL (7-21); CALCIUM 9.4 mg/dL (8.4-10.5); GFR AFRICAN-AMERICAN > 60; GFR NON-AFRICAN AMERICAN 51
[2017-09-26 05:46] LABS: BASO # 0.01 K/mm3 (0.0-2.0); BASO % 0.1 % (0.0-3.0); EOS # 0.1 (0.0-0.7); EOS % 0.8 % (1.5-5.0); GRAN # 7.54 (1.4-6.5); GRAN % 86.2 % (50.0-68.0); HEMOGLOBIN 8.3 g/dL (14.0-18.0); LYMPH # 0.6 (1.2-3.4); LYMPH % 7.2 % (22.0-35.0); MEAN CELL VOLUME 75.5 fl (80.0-105.0); MEAN CORPUSCULAR HEMOGLOBIN 25.5 pg (25.0-35.0); MEAN CORPUSCULAR HGB CONC 33.7 g/dl (31.0-37.0); MEAN PLATELET VOLUME 10.7 fl (7.0-11.0); MONO # 0.5 (0.1-0.6); MONO % 5.7 % (1.0-6.0); RBC 3.26 10^6/uL (3.5-6.1); RED CELL DISTRIBUTION WIDTH 13.9 % (11.5-14.5); WHITE BLOOD COUNT 8.8 10^3/ul (4.5-11.0)
[2017-09-26] MEDS: Insulin Lispro (humaLOG) MEDIUM Coverage SC SCH ×4 (09:02→23:30)
--- NOTE | 2017-09-26 09:39 | RAD ---
HISTORY: admission COMPARISON: 10/27/2016 FINDINGS: LUNGS: No active pulmonary disease. PLEURA: No significant pleural effusion identified, no pneumothorax apparent. CARDIOVASCULAR: Normal. OSSEOUS STRUCTURES: No significant abnormalities. VISUALIZED UPPER ABDOMEN: Normal. OTHER FINDINGS: None. IMPRESSION: No active disease.
--- NOTE | 2017-09-26 09:56 | CARD ---
APPROVED REPORT EKG Measurement Heart [id number] <Conclusion> Normal sinus rhythm Normal ECG
[2017-09-26 10:53] LABS: BLOOD UREA NITROGEN 18 mg/dL (7-21); CALCIUM 8.7 mg/dL (8.4-10.5); GFR AFRICAN-AMERICAN > 60; GFR NON-AFRICAN AMERICAN 55
[2017-09-26 12:15] LABS: BLOOD UREA NITROGEN 20 mg/dL (7-21); CALCIUM 8.4 mg/dL (8.4-10.5); GFR AFRICAN-AMERICAN > 60; GFR NON-AFRICAN AMERICAN 55
[2017-09-26 13:32] LABS: BLOOD UREA NITROGEN 20 mg/dL (7-21); CALCIUM 8.8 mg/dL (8.4-10.5); GFR AFRICAN-AMERICAN > 60; GFR NON-AFRICAN AMERICAN 55
[2017-09-26] MEDS ORDERED: Insulin Lispro 1 UNITS/0.01 ML ONE (16:50)
--- NOTE | 2017-09-26 18:38 | CP.PCM.CON ---
History of Present Illness - History of Present Illness History of Present Illness: Initial Nephrology Consultation: Assessment: Stable hypo-osmolar euvolemic Hyponatremia with dilute urine and low solute intake likely suggest polydipsia state with some ADH stimulation by SSRI anemia, thrombocytopenia Hypertensive Chronic Kidney Disease (I12.9) Chronic Kidney Disease (N18.3) Stage 3 without proteinuria (R80.9) likely due to HTN hx of tonsillar CA, CAD Plan Hypertension control with meds as ordered. Patient not on ACEI/ARB due to hyperkalemia initially Monitor Input/Output, daily weights and renal function with basic metabolic panel no need for hypertonic saline. avoid correction in serum Na >6-8 meq/24 hr. since he is overcorrecting, will start him on D5W @ 100 ml/hr to target of serum Na 122-124 tonight. once reaches the said target Na then can continue with oral fluid restriction to 1500 mL/day. supplement electrolytes as needed anemia management as per heme/onc Dose meds/antibiotics for reduced GFR. Avoid nephrotoxins/NSAIDs Glycemic control Further work up/management as per primary team Thanks for allowing me to participate in care of your patient. Will follow patient with you. Please call if any Qs Dr Chang Hightower Office: [phone] Chief Complaint; dizziness reason for consult: hyponatremia HPI: Pt is a 67 M with hx of HTN, CKD 3, CAD s/p PCI, stage 4 tonsillar carcinoma, DM type 2 presented with complaints of dizziness and low blood sugar for last 1 day. he has hx of tonsillar CA in past and usually not able to take much solid food. he mostly takes liquid diet and atleast 50 ounces of water per day Denies OTC/herbal meds or NSAIDs No recent iodinated contrast exposure. No obvious episodes of low BP. not taking thiazide diuretics. he is on neurontin and cymbalta had lost wt in past, now stable ROS: Cardiovascular: No chest pain. Pulmonary: No shortness of breath Gastrointestinal: denies abdominal pain No nausea. No vomiting. Genitourinary: No pain while urinating. Denies blood in urine. All other negative except as in HPI Physical Examination: General Appearance: Comfortable, in no acute respiratory distress, co-operative . Vitals reviewed and noted as below Head; Atraumatic, normocephalic ENT: no ulcers no thrush. Tongue is midline. Oropharynx: no rash or ulcers. EYES: Pupils are equal, round and reactive to light accommodation. Eye muscles and extraocular movement intact. Sclera is anicteric. Neck; supple no lymphadenopathy, no thyromegaly or bruit. skin hyperpigmented Lungs: Normal respiratory rate/effort. Breath sounds bilateral equal and clear Heart: Normal rate. s1s2 normal. No rub or gallop. Extremities: no edema. No varicose veins Neurological: Patient is alert, awake and oriented to person, place and time. No focal deficit. Strength bilateral appropriate and equal Skin: Warm and dry. Normal turgor. No rash. Palpitation: Normal elasticity for age Abdomen: Abdomen is soft. Bowel sounds +. There is no abdominal tenderness, no guarding/rigidity no organomegaly Psych: normal insight and normal affect/mood MSK: no joint tenderness or swelling. Digits and nails normal, no deformity : kidney or bladder not palpable Labs/imaging reviewed. Past medical history, past surgical history, family history, social history, allergy reviewed and noted as below Family hx: no hx of CKD. Rest non-contributory urine SG <1.005 urine osmol 195 and urine Na 35 TGL 39 TSH normal Past Patient History - Infectious Disease Hx of Infectious Diseases: None - Tetanus Immunizations Tetanus Immunization: Unknown - Past Medical History & Family History Past Medical History?: Yes - Past Social History Smoking Status: Never Smoked - CARDIAC Hx Cardiac Disorders: Yes (CAD) Hx Hypertension: Yes Other/Comment: cardiac stent placed - PULMONARY Hx Respiratory Disorders: Yes (TONSIL CA STAGE 4) Other/Comment: LUNG LESION - NEUROLOGICAL Hx Neurological Disorder: Yes HX Cerebrovascular Accident: No Hx Dizziness: Yes Hx Transient Ischemic Attacks (TIA): No - HEENT Hx HEENT Problems: Yes Other/Comment: H/O CA OF TONSILS - RENAL Hx Chronic Kidney Disease: No - ENDOCRINE/METABOLIC Hx Endocrine Disorders: Yes Hx Diabetes Mellitus Type 2: Yes - HEMATOLOGICAL/ONCOLOGICAL Hx Blood Disorders: Yes Hx Cancer: Yes Hx Chemotherapy: Yes (AND RADIATION 2016) Hx Metastesis: Yes - INTEGUMENTARY Hx Dermatological Problems: Yes - MUSCULOSKELETAL/RHEUMATOLOGICAL Hx Musculoskeletal Disorders: Yes Hx Falls: No Hx Fractures: No Hx Gout: Yes - GASTROINTESTINAL Hx Gastrointestinal Disorders: Yes (PEG IN AND OUT) Other/Comment: H/O CA OF TONSILS - GENITOURINARY/GYNECOLOGICAL Hx Genitourinary Disorders: Yes - PSYCHIATRIC Hx Psychophysiologic Disorder: Yes Hx Depression: Yes Hx Substance Use: No - SURGICAL HISTORY Hx Cardiac Catheterization: Yes Hx Coronary Stent: Yes Other/Comment: PEG reverse - ANESTHESIA Hx Anesthesia: Yes Hx Anesthesia Reactions: No Hx Malignant Hyperthermia: No Meds Allergies/Adverse Reactions: Allergies Allergy/AdvReac Type Severity Reaction Status Date / Time No Known Allergies Allergy Verified 09/25/17 22:06 - Medications Medications: Current Medications Dextrose (Dextrose 50% Inj) 50 ml IVP ONCE PRN PRN Reason: Other Famotidine (Pepcid) 40 mg PO HS VALENCIA Hydralazine HCl (Apresoline) 10 mg IVP Q6 PRN PRN Reason: Systolic Blood Pressure Dextrose (Dextrose 5% In Water 1000 Ml) 1,000 mls @ 100 mls/hr IV .Q10H VALENCIA Stop: 09/26/17 22:16 Last Admin: 09/26/17 12:58 Dose: 100 mls/hr Iron Sucrose 100 mg/ Sodium (Chloride) 105 mls @ 210 mls/hr IVPB DAILY VALENCIA Stop: 10/01/17 15:16 Last Admin: 09/26/17 16:43 Dose: 210 mls/hr Insulin Human Lispro (Humalog Med) 0 units SC ACHS VALENCIA PRN Reason: Protocol Last Admin: 09/26/17 16:57 Dose: 1 units Results - Vital Signs Recent Vital Signs: Last Vital Signs Temp 98.3 F 09/25/17 22:08 Pulse 72 09/26/17 06:44 Resp 18 09/26/17 06:44 BP 150/81 09/26/17 06:44 Pulse Ox 98 09/26/17 06:44 - Labs Result Diagrams: 09/26/17 05:20 09/26/17 13:20 Labs: Laboratory Results - last 24 hr 09/26/17 09/26/17 09/26/17 01:30 01:30 01:30 WBC RBC Hgb Hct MCV MCH MCHC RDW Plt Count MPV Gran % Lymph % (Auto) York % (Auto) Eos % (Auto) Baso % (Auto) Gran # Lymph # York # Eos # Baso # Sodium Potassium Chloride Carbon Dioxide Anion Gap BUN Creatinine Est GFR ( Amer) Est GFR (Non-Af Amer) POC Glucose (mg/dL) Random Glucose Hemoglobin A1c 5.7 Serum Osmolality Calcium Magnesium 1.7 Iron 15 L TIBC 283 % Saturation 5 L Triglycerides 39 Cholesterol 118 L LDL Cholesterol Direct 53 HDL Cholesterol 47 Free T4 TSH 3rd Generation 09/26/17 09/26/17 09/26/17 01:30 01:30 04:19 WBC RBC Hgb Hct MCV MCH MCHC RDW Plt Count MPV Gran % Lymph % (Auto) York % (Auto) Eos % (Auto) Baso % (Auto) Gran # Lymph # York # Eos # Baso # Sodium 124 L Potassium 5.5 H Chloride 93 L Carbon Dioxide 23 Anion Gap 14 BUN 20 Creatinine 1.4 Est GFR ( Amer) > 60 Est GFR (Non-Af Amer) 51 POC Glucose (mg/dL) Random Glucose 88 Hemoglobin A1c Serum Osmolality Calcium 9.4 Magnesium Iron TIBC % Saturation Triglycerides Cholesterol LDL Cholesterol Direct HDL Cholesterol Free T4 0.98 TSH 3rd Generation 2.53 09/26/17 09/26/17 09/26/17 05:20 08:30 10:20 WBC 8.8 RBC 3.26 L Hgb 8.3 L Hct 24.6 L MCV 75.5 L MCH 25.5 MCHC 33.7 RDW 13.9 Plt Count 99 L MPV 10.7 Gran % 86.2 H Lymph % (Auto) 7.2 L York % (Auto) 5.7 Eos % (Auto) 0.8 L Baso % (Auto) 0.1 Gran # 7.54 H Lymph # 0.6 L York # 0.5 Eos # 0.1 Baso # 0.01 Sodium 126 L Potassium 4.6 Chloride 96 L Carbon Dioxide 24 Anion Gap 11 BUN 18 Creatinine 1.3 Est GFR ( Amer) > 60 Est GFR (Non-Af Amer) 55 POC Glucose (mg/dL) Random Glucose 101 Hemoglobin A1c Serum Osmolality 246 L Calcium 8.7 Magnesium Iron TIBC % Saturation Triglycerides Cholesterol LDL Cholesterol Direct HDL Cholesterol Free T4 TSH 3rd Generation 09/26/17 09/26/17 09/26/17 12:00 13:02 13:20 WBC RBC Hgb Hct MCV MCH MCHC RDW Plt Count MPV Gran % Lymph % (Auto) York % (Auto) Eos % (Auto) Baso % (Auto) Gran # Lymph # York # Eos # Baso # Sodium 127 L 128 L Potassium 4.6 4.6 Chloride 96 L 96 L Carbon Dioxide 24 26 Anion Gap 11 11 BUN 20 20 Creatinine 1.3 1.3 Est GFR ( Amer) > 60 > 60 Est GFR (Non-Af Amer) 55 55 POC Glucose (mg/dL) 93 Random Glucose 95 98 Hemoglobin A1c Serum Osmolality Calcium 8.4 8.8 Magnesium Iron TIBC % Saturation Triglycerides Cholesterol LDL Cholesterol Direct HDL Cholesterol Free T4 TSH 3rd Generation 09/26/17 16:44 WBC RBC Hgb Hct MCV MCH MCHC RDW Plt Count MPV Gran % Lymph % (Auto) York % (Auto) Eos % (Auto) Baso % (Auto) Gran # Lymph # York # Eos # Baso # Sodium Potassium Chloride Carbon Dioxide Anion Gap BUN Creatinine Est GFR ( Amer) Est GFR (Non-Af Amer) POC Glucose (mg/dL) 155 H Random Glucose Hemoglobin A1c Serum Osmolality Calcium Magnesium Iron TIBC % Saturation Triglycerides Cholesterol LDL Cholesterol Direct HDL Cholesterol Free T4 TSH 3rd Generation
[2017-09-27 00:45] LABS: CALCIUM 9.3 mg/dL (8.4-10.5)
--- NOTE | 2017-09-27 06:31 | CON ---
DATE: HISTORY OF PRESENT ILLNESS: Mr. Chow is a right-handed 67-year-old male with past medical history of hypertension, chronic renal disease, coronary artery disease, status post PCI, diabetes type 2, and stage IV tonsillar carcinoma, who presented to the emergency room on 10/02 for dizziness that started the afternoon prior, the dizziness is associated with nausea, blurry vision, diaphoresis, and palpitations. At this time, the patient noted that his blood sugar was 66 and he drank sugar water, and the blood pressure increased to 75 and symptoms resolved. However, on admission to the emergency room, his blood sugar was still low and his blood pressure was very low. There was no headache. There was no dizziness. There was no seizure. There was no weakness. There was no ataxia. REVIEW OF SYSTEMS:: Positive for dizziness and nausea. PAST MEDICAL HISTORY: Significant for hypertension, CKD, CAD, status post PCI, stage IV tonsillar carcinoma, and diabetes type 2. PAST SURGICAL HISTORY: Significant for PEG tube placement and removal. FAMILY HISTORY: Significant for diabetes. SOCIAL HISTORY: He is not . He has no children. He was working, but he had to stop due to his diabetes. There is no alcohol or tobacco use. He is originally from [place]. PHYSICAL EXAMINATION: VITAL SIGNS: Temperature 97.2, blood pressure 150/81, respiratory rate 18, O2 saturation 98%. NEUROLOGIC: He is alert and oriented x3. There is right mild ptosis, although the patient states that this is baseline. Extraocular movements are intact. There is no nystagmus. There is no visual field cut. Cranial nerves II through XII are normal. Speech is fluent. He can name and repeat. Mini-mental status is 30/30. The patient can draw well intersecting pentagons and clock with no deficit. His speech is fluent. He is able to name 3 of 3 objects. Remote and recent memory is normal. Motor tone is normal. Strength is normal at 5/5 in upper and lower bilaterally. Sensory is intact to fine touch and pin. Position and vibration sense are decreased in feet bilaterally. Cerebellar, gait is normal. There is no ataxia. There is no dysmetria in cerebellar exam. Reflexes are +1 in upper and lower bilaterally. Toes are downgoing. There is no clonus. LABORATORY DATA: Labs are as follows. White count 8.8, RBC 2.26, hemoglobin 8.3, hematocrit 25.6, platelets 99, there is left shift with granulocytes today of 6.2, 7.54. PT, PTT, INR are 12.1, 32 and 1.06 respectively. Chemistry, his sodium 126, potassium of 4.6, chloride 96, BUN 18, creatinine 1.3, glucose 101, calcium 8.7, magnesium 15. Cholesterol is significant for elevated total cholesterol 118, but triglycerides and LDLs are normal. CAT scan was ordered and shows the following. CAT scan shows that there is a nonspecific white matter changes and acute infarct. Chest x-ray is normal. EKG is within normal limits. IMPRESSION: This is a 67-year-old male with possible acute infarct on CAT scan, although neurological exam only shows right ptosis which is baseline. At this point, we will initiate stroke workup including MRI of the brain, CTA, echo and carotid Dopplers. We will also start him on statin for his cholesterol. In addition, the patient has severe hyponatremia, for which he is being treated and we will monitor this accordingly. Thank you for this interesting consultation. Our team will follow. Cadence Cody MD
[2017-09-27 06:55] LABS: BASO # 0.01 K/mm3 (0.0-2.0); BASO % 0.2 % (0.0-3.0); EOS # 0.1 (0.0-0.7); GRAN # 4.53 (1.4-6.5); GRAN % 81.1 % (50.0-68.0); LYMPH # 0.3 (1.2-3.4); LYMPH % 5.2 % (22.0-35.0); MEAN CELL VOLUME 75.9 fl (80.0-105.0); MEAN CORPUSCULAR HEMOGLOBIN 25.1 pg (25.0-35.0); MEAN CORPUSCULAR HGB CONC 33.1 g/dl (31.0-37.0); MEAN PLATELET VOLUME 9.1 fl (7.0-11.0); MONO # 0.6 (0.1-0.6); MONO % 11.5 % (1.0-6.0); RBC 3.19 10^6/uL (3.5-6.1); WHITE BLOOD COUNT 5.6 10^3/ul (4.5-11.0)
[2017-09-27 07:20] LABS: ALB/GLOB RATIO 1.1 (1.1-1.8); ALBUMIN 3.2 g/dL (3.0-4.8); CALCIUM 9.3 mg/dL (8.4-10.5)
[2017-09-27] MEDS: Insulin Lispro (humaLOG) MEDIUM Coverage SC SCH ×3 (08:00→16:35)
--- NOTE | 2017-09-27 11:18 | CP.PCM.CON ---
History of Present Illness - History of Present Illness History of Present Illness: Please see dictation for full note and physical Assessment: 67 yr old male with multiple risk factors for stroke, now with possible tIA, but most likely metabolic, secondary to DM and hyponatremia with normal neuro exam. Will follow up CT Past Patient History - Infectious Disease Hx of Infectious Diseases: None - Tetanus Immunizations Tetanus Immunization: Unknown - Past Medical History & Family History Past Medical History?: Yes - Past Social History Smoking Status: Never Smoked - CARDIAC Hx Cardiac Disorders: Yes (CAD) Hx Hypertension: Yes Other/Comment: cardiac stent placed - PULMONARY Hx Respiratory Disorders: Yes (TONSIL CA STAGE 4) Other/Comment: LUNG LESION - NEUROLOGICAL Hx Neurological Disorder: Yes HX Cerebrovascular Accident: No Hx Dizziness: Yes Hx Transient Ischemic Attacks (TIA): No - HEENT Hx HEENT Problems: Yes Other/Comment: H/O CA OF TONSILS - RENAL Hx Chronic Kidney Disease: No - ENDOCRINE/METABOLIC Hx Endocrine Disorders: Yes Hx Diabetes Mellitus Type 2: Yes - HEMATOLOGICAL/ONCOLOGICAL Hx Blood Disorders: Yes Hx Cancer: Yes Hx Chemotherapy: Yes (AND RADIATION 2016) Hx Metastesis: Yes - INTEGUMENTARY Hx Dermatological Problems: Yes - MUSCULOSKELETAL/RHEUMATOLOGICAL Hx Musculoskeletal Disorders: Yes Hx Falls: No Hx Fractures: No Hx Gout: Yes - GASTROINTESTINAL Hx Gastrointestinal Disorders: Yes (PEG IN AND OUT) Other/Comment: H/O CA OF TONSILS - GENITOURINARY/GYNECOLOGICAL Hx Genitourinary Disorders: Yes - PSYCHIATRIC Hx Psychophysiologic Disorder: Yes Hx Depression: Yes Hx Substance Use: No - SURGICAL HISTORY Hx Cardiac Catheterization: Yes Hx Coronary Stent: Yes Other/Comment: PEG reverse - ANESTHESIA Hx Anesthesia: Yes Hx Anesthesia Reactions: No Hx Malignant Hyperthermia: No Meds Allergies/Adverse Reactions: Allergies Allergy/AdvReac Type Severity Reaction Status Date / Time No Known Allergies Allergy Verified 09/25/17 22:06 - Medications Medications: Current Medications Dextrose (Dextrose 50% Inj) 50 ml IVP ONCE PRN PRN Reason: Other Famotidine (Pepcid) 40 mg PO HS [facility] Hydralazine HCl (Apresoline) 10 mg IVP Q6 PRN PRN Reason: Systolic Blood Pressure Sodium Chloride (Sodium Chloride 0.9%) 1,000 mls @ 50 mls/hr IV .Q20H [facility] Last Admin: 09/26/17 06:14 Dose: 50 mls/hr Insulin Human Lispro (Humalog Med) 0 units SC ACHS [facility] PRN Reason: Protocol Last Admin: 09/26/17 09:02 Dose: Not Given Results - Vital Signs Recent Vital Signs: Last Vital Signs Temp 98.3 F 09/25/17 22:08 Pulse 72 09/26/17 06:44 Resp 18 09/26/17 06:44 BP 150/81 09/26/17 06:44 Pulse Ox 98 09/26/17 06:44 - Labs Result Diagrams: 09/26/17 05:20 09/26/17 10:20 Labs: Laboratory Results - last 24 hr 09/26/17 09/26/17 09/26/17 01:30 01:30 01:30 WBC RBC Hgb Hct MCV MCH MCHC RDW Plt Count MPV Gran % Lymph % (Auto) [place] % (Auto) Eos % (Auto) Baso % (Auto) Gran # Lymph # [place] # Eos # Baso # Sodium Potassium Chloride Carbon Dioxide Anion Gap BUN Creatinine Est GFR ( Amer) Est GFR (Non-Af Amer) Random Glucose Calcium Magnesium 1.7 Iron 15 L TIBC 283 % Saturation 5 L Triglycerides 39 Cholesterol 118 L LDL Cholesterol Direct 53 HDL Cholesterol 47 Free T4 TSH 3rd Generation 2.53 09/26/17 09/26/17 09/26/17 01:30 04:19 05:20 WBC 8.8 RBC 3.26 L Hgb 8.3 L Hct 24.6 L MCV 75.5 L MCH 25.5 MCHC 33.7 RDW 13.9 Plt Count 99 L MPV 10.7 Gran % 86.2 H Lymph % (Auto) 7.2 L [place] % (Auto) 5.7 Eos % (Auto) 0.8 L Baso % (Auto) 0.1 Gran # 7.54 H Lymph # 0.6 L [place] # 0.5 Eos # 0.1 Baso # 0.01 Sodium 124 L Potassium 5.5 H Chloride 93 L Carbon Dioxide 23 Anion Gap 14 BUN 20 Creatinine 1.4 Est GFR ( Amer) > 60 Est GFR (Non-Af Amer) 51 Random Glucose 88 Calcium 9.4 Magnesium Iron TIBC % Saturation Triglycerides Cholesterol LDL Cholesterol Direct HDL Cholesterol Free T4 0.98 TSH 3rd Generation 09/26/17 10:20 WBC RBC Hgb Hct MCV MCH MCHC RDW Plt Count MPV Gran % Lymph % (Auto) [place] % (Auto) Eos % (Auto) Baso % (Auto) Gran # Lymph # [place] # Eos # Baso # Sodium 126 L Potassium 4.6 Chloride 96 L Carbon Dioxide 24 Anion Gap 11 BUN 18 Creatinine 1.3 Est GFR ( Amer) > 60 Est GFR (Non-Af Amer) 55 Random Glucose 101 Calcium 8.7 Magnesium Iron TIBC % Saturation Triglycerides Cholesterol LDL Cholesterol Direct HDL Cholesterol Free T4 TSH 3rd Generation
--- NOTE | 2017-09-27 12:19 | CP.PCM.PN ---
Subjective - Date & Time of Evaluation Date of Evaluation: 09/27/17 Time of Evaluation: 12:17 - Subjective Subjective: Follow up Nephrology Consultation: Assessment: Stable hypo-osmolar euvolemic Hyponatremia with dilute urine and low solute intake likely suggest polydipsia state with some ADH stimulation by SSRI anemia, thrombocytopenia Hypertensive Chronic Kidney Disease (I12.9) Chronic Kidney Disease (N18.3) Stage 3 without proteinuria (R80.9) likely due to HTN hx of tonsillar CA, CAD acute gout Plan Hypertension control with meds as ordered. Monitor Input/Output, daily weights and renal function with basic metabolic panel continue with oral fluid restriction to 1500 mL/day. supplement electrolytes as needed anemia management as per heme/onc and primary team Dose meds/antibiotics for reduced GFR. Avoid nephrotoxins/NSAIDs Glycemic control Further work up/management as per primary team pt stable for d/c from renal perspective when planned, with outpt renal follow up in 1-2 weeks Thanks for allowing me to participate in care of your patient. Will follow patient with you. Please call if any Qs Dr Chang Hightower Office: [phone] Chief Complaint; gout in left foot toe reason for consult: hyponatremia HPI: Pt is a 67 M with hx of HTN, CKD 3, CAD s/p PCI, stage 4 tonsillar carcinoma, DM type 2 presented with complaints of dizziness and low blood sugar for last 1 day. he has hx of tonsillar CA in past and usually not able to take much solid food. he mostly takes liquid diet and atleast 50 ounces of water per day Denies OTC/herbal meds or NSAIDs No recent iodinated contrast exposure. No obvious episodes of low BP. not taking thiazide diuretics. he is on neurontin and cymbalta had lost wt in past, now stable ROS: Cardiovascular: No chest pain. Pulmonary: No shortness of breath Gastrointestinal: denies abdominal pain No nausea. No vomiting. Genitourinary: No pain while urinating. Denies blood in urine. All other negative except as in HPI Physical Examination: General Appearance: Comfortable, in no acute respiratory distress, co-operative . Vitals reviewed and noted as below Head; Atraumatic, normocephalic ENT: no ulcers no thrush. Tongue is midline. Oropharynx: no rash or ulcers. EYES: Pupils are equal, round and reactive to light accommodation. Eye muscles and extraocular movement intact. Sclera is anicteric. Neck; supple no lymphadenopathy, no thyromegaly or bruit. skin hyperpigmented Lungs: Normal respiratory rate/effort. Breath sounds bilateral equal and clear Heart: Normal rate. s1s2 normal. No rub or gallop. Extremities: no edema. No varicose veins, left foot toe painful swelling + Neurological: Patient is alert, awake and oriented to person, place and time. No focal deficit. Strength bilateral appropriate and equal Skin: Warm and dry. Normal turgor. No rash. Palpitation: Normal elasticity for age Abdomen: Abdomen is soft. Bowel sounds +. There is no abdominal tenderness, no guarding/rigidity no organomegaly Psych: normal insight and normal affect/mood MSK: no joint tenderness or swelling. Digits and nails normal, no deformity : kidney or bladder not palpable Labs/imaging reviewed. Past medical history, past surgical history, family history, social history, allergy reviewed and noted as below Family hx: no hx of CKD. Rest non-contributory urine SG <1.005 urine osmol 195 and urine Na 35 TGL 39 TSH nor Objective - Vital Signs/Intake and Output Vital Signs (last 24 hours): Temp Pulse Resp BP Pulse Ox 99.2 F 95 H 20 135/73 98 09/27/17 06:00 09/27/17 06:00 09/27/17 06:00 09/27/17 06:00 09/27/17 06:00 Intake and Output: 09/27/17 09/27/17 06:59 18:59 Intake Total 600 Balance 600 - Medications Medications: Current Medications Colchicine (Colocrys) 0.6 mg PO BID [facility] Last Admin: 09/27/17 10:19 Dose: 0.6 mg Dextrose (Dextrose 50% Inj) 50 ml IVP ONCE PRN PRN Reason: Other Duloxetine HCl (Cymbalta) 60 mg PO DAILY [facility] Last Admin: 09/27/17 10:19 Dose: 60 mg Famotidine (Pepcid) 40 mg PO HS [facility] Gabapentin (Neurontin) 300 mg PO TID [facility] PRN Reason: Protocol Hydralazine HCl (Apresoline) 10 mg IVP Q6 PRN PRN Reason: Systolic Blood Pressure Iron Sucrose 100 mg/ Sodium (Chloride) 105 mls @ 210 mls/hr IVPB DAILY [facility] Stop: 10/01/17 15:16 Last Admin: 09/26/17 16:43 Dose: 210 mls/hr Insulin Human Lispro (Humalog Med) 0 units SC ACHS [facility] PRN Reason: Protocol Last Admin: 09/27/17 08:00 Dose: Not Given - Labs Labs: 09/27/17 06:30 09/27/17 06:30 PT 12.1 SECONDS (9.4-12.5) 09/25/17 22:11 INR 1.06 (0.93-1.08) 09/25/17 22:11 APTT 32.0 Seconds (25.1-36.5) 09/25/17 22:11
--- NOTE | 2017-09-27 16:27 | CP.PCM.PN ---
Subjective - Date & Time of Evaluation Date of Evaluation: 09/27/17 Time of Evaluation: 11:23 - Subjective Subjective: Alex GrajedaSharan PGY1 IM Progress Note Patient was seen and examined at bedside. His only complaint is b/l toe pain similar to his gout episodes but denies overnight events. He states that his dizziness has resolved and that overall, he feels much better. Patient unable to perform PT due to his pain. Denies chest pain, shortness of breath, weakness , dizziness, headache, n/v/d, or changes in bowel/urinary habits. Objective - Vital Signs/Intake and Output Vital Signs (last 24 hours): Temp Pulse Resp BP Pulse Ox 99.9 F H 105 H 20 179/77 H 100 09/27/17 12:00 09/27/17 12:00 09/27/17 12:00 09/27/17 12:00 09/27/17 12:00 Intake and Output: 09/27/17 09/27/17 06:59 18:59 Intake Total 600 Balance 600 - Medications Medications: Current Medications Colchicine (Colocrys) 0.6 mg PO BID [facility] Last Admin: 09/27/17 10:19 Dose: 0.6 mg Dextrose (Dextrose 50% Inj) 50 ml IVP ONCE PRN PRN Reason: Other Duloxetine HCl (Cymbalta) 60 mg PO DAILY [facility] Last Admin: 09/27/17 10:19 Dose: 60 mg Famotidine (Pepcid) 40 mg PO HS [facility] Gabapentin (Neurontin) 300 mg PO TID [facility] PRN Reason: Protocol Last Admin: 09/27/17 13:54 Dose: 300 mg Hydralazine HCl (Apresoline) 10 mg IVP Q6 PRN PRN Reason: Systolic Blood Pressure Iron Sucrose 100 mg/ Sodium (Chloride) 105 mls @ 210 mls/hr IVPB DAILY [facility] Stop: 10/01/17 15:16 Last Admin: 09/26/17 16:43 Dose: 210 mls/hr Insulin Human Lispro (Humalog Med) 0 units SC ACHS [facility] PRN Reason: Protocol Last Admin: 09/27/17 12:31 Dose: 1 units - Labs Labs: 09/27/17 06:30 09/27/17 06:30 PT 12.1 SECONDS (9.4-12.5) 09/25/17 22:11 INR 1.06 (0.93-1.08) 09/25/17 22:11 APTT 32.0 Seconds (25.1-36.5) 09/25/17 22:11 - Constitutional Appears: Well, Non-toxic, No Acute Distress - Head Exam Head Exam: NORMAL INSPECTION - Eye Exam Eye Exam: EOMI, Normal appearance, PERRL - ENT Exam ENT Exam: Mucous Membranes Moist - Neck Exam Neck Exam: Normal Inspection - Respiratory Exam Respiratory Exam: Clear to Ausculation Bilateral, NORMAL BREATHING PATTERN. absent: Rhonchi, Wheezes - Cardiovascular Exam Cardiovascular Exam: RRR, +S1, +S2 - GI/Abdominal Exam GI & Abdominal Exam: Soft, Normal Bowel Sounds. absent: Distended, Tenderness - Extremities Exam Extremities Exam: Full ROM, Tenderness (b/l 1st metatarsals). absent: Pedal Edema - Back Exam Back Exam: Full ROM - Neurological Exam Neurological Exam: Alert, Awake, Oriented x3 Assessment and Plan - Assessment and Plan (Free Text) Assessment: 67 year old male with past medical history of HTN, CKD, CAD s/p PCI, stage 4 tonsillar carcinoma s/p radiation and chemo, DM type 2 who was admitted for evaluation and treatment of dizziness. Plan: 1. Dizziness, resolved - CT of head was negative - EKG was NSR - high risk fall precautions - neuro ordered Echo and MRI, will f/u pending official reads - neuro consulted- appreciate recommendations 2. Hyponatremia, improved - hypo-osmolar hyponatremia given hypo-osmolarity of serum and urine - likely 2/2 polydipsia 2/2 diet - nephrology consulted- appreciate recommendations 3. Hyperkalemia, resolved - kayexylate given in ED x2, +BM 4. Hypomagnesemia - repleted - will monitor closely via mag level 5. Hx of Anemia - 2/2 iron deficiency anemia - IV venofer ordered - cont to monitor 6. Hx of CKD w/ no clear prior baseline - avoid nephrotoxins - nephrology consulted- appreciate recommendations 7. Hx of HTN - Hydralazine PRN 8. Hx of Diabetes - hold home diabetic medications - fingersticks ACHS - insulin sliding scale- lispro medium - resume diet as carb consistent 9. Hx of Stage 4 Tonsillar Carcinoma - resolved as per patient; s/p radiation and chemotherapy - no acute intervention at this time - pureed diet 10. gout - started colchicine (CrCl 37 so no need for renal dosing) - started home dose gabapentin Prophylaxis - DVT ppx- scds - GI ppx- famotidine Patient was seen, examined and discussed with attending, Dr. Claire Tsang PGY1
--- NOTE | 2017-09-27 17:07 | MRI ---
PROCEDURE: MRI BRAIN WITHOUT CONTRAST HISTORY: dizziness COMPARISON: None. TECHNIQUE: Multiplanar, multisequence MR images of the brain were obtained without intravenous contrast enhancement. FINDINGS: HEMORRHAGE: None DWI: No evidence of an acute or early subacute infarction. BRAIN PARENCHYMA: No mass effect or edema. No atrophy or chronic microvascular ischemic changes. VENTRICLES: Unremarkable. No hydrocephalus. CRANIUM: Unremarkable. ORBITS: Grossly unremarkable. PARANASAL SINUSES/MASTOIDS: Clear VASCULAR SYSTEM: Skull base flow voids intact. OTHER FINDINGS: None. IMPRESSION: Unremarkable non contrast enhanced MRI of the brain.
--- NOTE | 2017-09-27 17:09 | MRI ---
PROCEDURE: Magnetic Resonance Angiography Brain HISTORY: dizziness COMPARISON: None available. TECHNIQUE: 3D time of flight MR angiography of the intracranial arteries was performed. Rotating maximum intensity projection images were generated. FINDINGS: INTERNAL CAROTID ARTERIES: Unremarkable. The skull base, petrous, cavernous and supraclinoid segments are bilaterally widely patient. ANTERIOR CEREBRAL ARTERIES: Unremarkable. A1 and A2 segments are widely patent. Smaller distal branches unremarkable, as visualized. MIDDLE CEREBRAL ARTERIES: Unremarkable. M1 and M2 segments are widely patent. Perisylvian branches grossly symmetric. POSTERIOR CIRCULATION: Basilar Artery: Unremarkable. Distal Vertebral Arteries: Unremarkable. Posterior Cerebral Arteries: Unremarkable. Posterior Inferior Cerebellar Arteries: Unremarkable. ANEURYSM/ VASCULAR MALFORMATIONS: None. OTHER FINDINGS: None. IMPRESSION: Unremarkable MR angiography of the brain.
--- NOTE | 2017-09-27 17:15 | MRI ---
PROCEDURE: MR Angiography of the neck without contrast HISTORY: dizziness COMPARISON: None available. TECHNIQUE: 3D [id number] angiography of the neck was performed. Rotating maximum intensity projection images of the cervical carotid and vertebral arteries were generated. The origins of the common carotid arteries were not visualized, which is a limitation inherent to the non-contrast time of flight technique. FINDINGS: RIGHT CAROTID ARTERIES: Common Carotid Artery: Normal. Carotid Bifurcation: Normal. Internal Carotid Artery:Normal. External Carotid Artery (proximal branches): There is a moderate stenosis of the proximal external carotid LEFT CAROTID ARTERIES: Common Carotid Artery: Normal. Carotid Bifurcation: Normal. Internal Carotid Artery:There is an eccentric plaque at the origin of the left internal carotid producing a moderate degree of stenosis. This correlates with the previous ultrasound which indicated a 60-79 percent stenosis External Carotid Artery (proximal branches): Normal. VERTEBRAL ARTERIES: Right Vertebral Artery: Dominant Left Vertebral Artery: No flow visualize consistent with hypoplastic artery versus occlusion. OTHER FINDINGS: None. IMPRESSION: There is an eccentric plaque at the origin of the left internal carotid producing a moderate degree of stenosis. This correlates with the previous ultrasound which indicated a 60-79 percent stenosis Large right vertebral artery. 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
--- NOTE | 2017-09-27 18:18 | CARD ---
APPROVED REPORT EXAM: Two-dimensional and M-mode echocardiogram with Doppler and color Doppler. INDICATION Dizziness 2D DIMENSIONS Left Atrium (2D)3.7 (1.6-4.0cm)IVSd1.0 (0.7-1.1cm) LVDd4.1 (3.9-5.9cm)PWd1.1 (0.7-1.1cm) LVDs2.5 (2.5-4.0cm)FS (%) 38.6 % LVEF (%)69.4 (>50%) M-Mode DIMENSIONS Aortic Root3.10 (2.2-3.7cm)Aortic Cusp Exc.2.00 (1.5-2.0cm) Aortic Valve AoV Peak Dgeowpex501.0cm/Addi Peak GR.7mmHg Mitral Valve MV E Kkrkixei61.8cm/sMV A Pysohczh82.8cm/sE/A ratio0.8 TDI E/Lateral E'0.0E/Medial E'0.0 Tricuspid Valve TR Peak Zjfvttbq760aj/sRAP [id number] Peak Gr.35mmHg [id number] LEFT VENTRICLE The left ventricle is normal size. There is normal left ventricular wall thickness. The left ventricular function is normal. The left ventricular ejection fraction is within the normal range. There is normal LV segmental wall motion. Transmitral Doppler flow pattern is Grade I-abnormal relaxation pattern. RIGHT VENTRICLE The right ventricle is normal size. There is normal right ventricular wall thickness. The right ventricular systolic function is normal. ATRIA The left atrium size is normal. The right atrium size is normal. AORTIC VALVE The aortic valve is normal in structure. No aortic regurgitation is present. There is no aortic valvular stenosis. MITRAL VALVE The mitral valve is normal in structure. Mitral regurgitation is trace. TRICUSPID VALVE The tricuspid valve is normal in structure. There is mild tricuspid regurgitation. There is mild to moderate pulmonary hypertension. PULMONIC VALVE There is mild pulmonic valvular regurgitation. GREAT VESSELS The aortic root is normal in size. The IVC is normal in size and collapses >50% with inspiration. PERICARDIAL EFFUSION There is no pericardial effusion. <Conclusion> The left ventricle is normal size. There is normal left ventricular wall thickness. The left ventricular function is normal. The left ventricular ejection fraction is within the normal range. There is normal LV segmental wall motion. Transmitral Doppler flow pattern is Grade I-abnormal relaxation pattern. There is mild tricuspid regurgitation. There is mild to moderate pulmonary hypertension.
[2017-09-28] MEDS: Insulin Lispro (humaLOG) MEDIUM Coverage SC SCH ×4 (02:41→15:00)
[2017-09-28 07:12] LABS: EOS # 0.1 (0.0-0.7); GRAN # 4.29 (1.4-6.5); GRAN % 79.4 % (50.0-68.0); LYMPH # 0.4 (1.2-3.4); MEAN CELL VOLUME 74.6 fl (80.0-105.0); MEAN CORPUSCULAR HEMOGLOBIN 25.1 pg (25.0-35.0); MEAN CORPUSCULAR HGB CONC 33.6 g/dl (31.0-37.0); MEAN PLATELET VOLUME 9.9 fl (7.0-11.0); MONO # 0.6 (0.1-0.6); MONO % 11.6 % (1.0-6.0); RBC 2.87 10^6/uL (3.5-6.1); RED CELL DISTRIBUTION WIDTH 14.2 % (11.5-14.5); WHITE BLOOD COUNT 5.4 10^3/ul (4.5-11.0)
[2017-09-28 07:31] LABS: CALCIUM 8.8 mg/dL (8.4-10.5)
[2017-09-28 07:34] LABS: HEMOGLOBIN 7.2 g/dL (14.0-18.0)
[2017-09-28 08:09] VITALS: RESP 16
--- NOTE | 2017-09-28 08:39 | CP.PCM.PN ---
Subjective - Date & Time of Evaluation Date of Evaluation: 09/28/17 Time of Evaluation: 08:35 - Subjective Subjective: Mr. Chow was seen and examined at the bedside. He is alert, oriented in all spheres. He denies any headache, dizziness, lightheadedness, nause, or vomiting. He is able to follow commands and answer questions appropriately. He further states that if his blood sugar is control he feels fine. MRI of the brain and MRA of the head showed unremarkable. MRA of the neck showed eccentric plague at the origin left ICA PRODUCING MODERATE AMOUNT OF STENOSIS.There was no untoward events overnight. Objective - Vital Signs/Intake and Output Vital Signs (last 24 hours): Temp Pulse Resp BP Pulse Ox 98.6 F 88 16 129/68 99 09/28/17 08:09 09/28/17 08:09 09/28/17 08:09 09/28/17 08:09 09/28/17 08:09 Intake and Output: 09/28/17 09/28/17 06:59 18:59 Intake Total 900 Output Total 550 Balance 350 - Medications Medications: Current Medications Dextrose (Dextrose 50% Inj) 50 ml IVP ONCE PRN PRN Reason: Other Duloxetine HCl (Cymbalta) 60 mg PO DAILY [facility] Last Admin: 09/27/17 10:19 Dose: 60 mg Famotidine (Pepcid) 40 mg PO HS [facility] Last Admin: 09/27/17 21:34 Dose: 40 mg Gabapentin (Neurontin) 300 mg PO TID [facility] PRN Reason: Protocol Last Admin: 09/27/17 17:59 Dose: 300 mg Hydralazine HCl (Apresoline) 10 mg IVP Q6 PRN PRN Reason: Systolic Blood Pressure Iron Sucrose 100 mg/ Sodium (Chloride) 105 mls @ 210 mls/hr IVPB DAILY [facility] Stop: 10/01/17 15:16 Last Admin: 09/26/17 16:43 Dose: 210 mls/hr Insulin Human Lispro (Humalog Med) 0 units SC ACHS [facility] PRN Reason: Protocol Last Admin: 09/28/17 02:41 Dose: Not Given - Labs Labs: 09/28/17 06:35 09/28/17 06:35 PT 12.1 SECONDS (9.4-12.5) 09/25/17 22:11 INR 1.06 (0.93-1.08) 09/25/17 22:11 APTT 32.0 Seconds (25.1-36.5) 09/25/17 22:11 - Constitutional Appears: No Acute Distress - Head Exam Head Exam: NORMAL INSPECTION - Neurological Exam Neurological Exam: Alert, Awake, Oriented x3 Neuro motor strength exam: Left Upper Extremity: 5, Right Upper Extremity: 5, Left Lower Extremity: 5, Right Lower Extremity: 5 Additional comments: He is alert, oriented x3. He is able to follow simple commands. Sensation remains intact. Assessment and Plan (1) Dizziness Assessment & Plan: Case discussed with Dr. Cody, continue all current medical regimen. Recommend dual antiplatelet; Aspirin 81 mg PO daily and Plavix 75 mg PO daily. Clear from neurology for discharge today. Recommend follow up with Dr. Trujillo/ Escobar in 2 weeks after discharge . The address [address] [facility] [address]. Status: Acute
[2017-09-28] MEDS ORDERED: Sodium Chloride 0.9% 1,000 ML IV SCH (09:15)
[2017-09-28] MEDS ORDERED: Lactated Ringer's 1,000 ML IV SCH (11:00)
--- NOTE | 2017-09-28 13:11 | US ---
PROCEDURE: Urinary bladder ultrasound HISTORY: PEDRO COMPARISON: None TECHNIQUE: Standard protocol for this study/examination. FINDINGS: Urinary bladder assessment: Prevoid volume: 99.1 ml Postvoid residual: 0.0 ml Intrinsic, mural, perivesical abnormalities: None Ureteral jets: Not visualized bilaterally IMPRESSION: Small capacitance bladder, no postvoid residual. Neither focal no diffuse abnormalities with respect to bladder wall. No intravesical abnormalities.
--- NOTE | 2017-09-28 13:28 | CP.PCM.PN ---
Objective - Vital Signs/Intake and Output Vital Signs (last 24 hours): Temp Pulse Resp BP Pulse Ox 98.6 F 88 16 129/68 99 09/28/17 08:09 09/28/17 08:09 09/28/17 08:09 09/28/17 08:09 09/28/17 08:09 Intake and Output: 09/28/17 09/28/17 06:59 18:59 Intake Total 900 Output Total 550 Balance 350 - Medications Medications: Current Medications Aspirin (Ecotrin) 81 mg PO DAILY [facility] Last Admin: 09/28/17 10:53 Dose: 81 mg Clopidogrel Bisulfate (Plavix) 75 mg PO DAILY [facility] Last Admin: 09/28/17 10:53 Dose: 75 mg Dextrose (Dextrose 50% Inj) 50 ml IVP ONCE PRN PRN Reason: Other Duloxetine HCl (Cymbalta) 60 mg PO DAILY [facility] Last Admin: 09/28/17 10:52 Dose: 60 mg Famotidine (Pepcid) 40 mg PO HS [facility] Last Admin: 09/27/17 21:34 Dose: 40 mg Gabapentin (Neurontin) 300 mg PO TID [facility] PRN Reason: Protocol Last Admin: 09/28/17 10:52 Dose: 300 mg Hydralazine HCl (Apresoline) 10 mg IVP Q6 PRN PRN Reason: Systolic Blood Pressure Iron Sucrose 100 mg/ Sodium (Chloride) 105 mls @ 210 mls/hr IVPB DAILY [facility] Stop: 10/01/17 15:16 Last Admin: 09/28/17 12:55 Dose: 210 mls/hr Sodium Chloride (Sodium Chloride 0.9%) 1,000 mls @ 75 mls/hr IV .[id number] [facility] Stop: 09/29/17 09:16 Last Admin: 09/28/17 12:54 Dose: 75 mls/hr Insulin Human Lispro (Humalog Med) 0 units SC ACHS [facility] PRN Reason: Protocol Last Admin: 09/28/17 12:00 Dose: Not Given Prednisone (Prednisone Tab) 0 mg PO DAILY [facility] PRN Reason: Taper Stop: 10/06/17 09:59 - Labs Labs: 09/28/17 06:35 09/28/17 06:35 PT 12.1 SECONDS (9.4-12.5) 09/25/17 22:11 INR 1.06 (0.93-1.08) 09/25/17 22:11 APTT 32.0 Seconds (25.1-36.5) 09/25/17 22:11
--- NOTE | 2017-09-28 13:31 | US ---
PROCEDURE: Ultrasound of the Kidneys HISTORY: PEDRO COMPARISON: 10/11/2016 abdominal ultrasound. TECHNIQUE: Sonogram of the kidneys. FINDINGS: RIGHT KIDNEY: Measures: 4.9 x 10.9 cm. Normal in size, contour and echogenicity. No stone, solid mass lesion or hydronephrosis visualized. LEFT KIDNEY: Measures: 5.7 x 11.3 cm. Normal in size, contour and echogenicity. No stone, solid mass lesion or hydronephrosis visualized. OTHER FINDINGS: None. IMPRESSION: No significant or acute findings to account for/ related to the clinical presentation. No significant interval change compared to the prior examination(s).
--- NOTE | 2017-09-28 14:49 | CP.PCM.PN ---
Subjective - Date & Time of Evaluation Date of Evaluation: 09/28/17 Time of Evaluation: 10:00 - Subjective Subjective: Follow up Nephrology Consultation: Assessment: Stable hypo-osmolar euvolemic Hyponatremia with dilute urine and low solute intake likely suggest polydipsia state with some ADH stimulation by SSRI anemia, thrombocytopenia Hypertensive Chronic Kidney Disease (I12.9) PEDRO Chronic Kidney Disease (N18.3) Stage 3 without proteinuria (R80.9) likely due to HTN hx of tonsillar CA, CAD acute gout Plan Hypertension control with meds as ordered. Monitor Input/Output, daily weights and renal function with basic metabolic panel continue with oral fluid restriction. supplement electrolytes as needed anemia management as per heme/onc and primary team ordered urine studies and renal sono. started IVF as normal saline as serum cr rising. Dose meds/antibiotics for reduced GFR. Avoid nephrotoxins/NSAIDs Glycemic control Further work up/management as per primary team pt stable for d/c from renal perspective when planned, with outpt renal follow up in 1-2 weeks Thanks for allowing me to participate in care of your patient. Will follow patient with you. Please call if any Qs Dr Chang Hightower Office: [phone] reason for consult: hyponatremia HPI: Pt is a 67 M with hx of HTN, CKD 3, CAD s/p PCI, stage 4 tonsillar carcinoma, DM type 2 presented with complaints of dizziness and low blood sugar for last 1 day. he has hx of tonsillar CA in past and usually not able to take much solid food. he mostly takes liquid diet and atleast 50 ounces of water per day Denies OTC/herbal meds or NSAIDs No recent iodinated contrast exposure. No obvious episodes of low BP. not taking thiazide diuretics. he is on neurontin and cymbalta had lost wt in past, now stable ROS: Cardiovascular: No chest pain. Pulmonary: No shortness of breath Gastrointestinal: denies abdominal pain No nausea. No vomiting. Genitourinary: No pain while urinating. Denies blood in urine. All other negative except as in HPI Physical Examination: General Appearance: Comfortable, in no acute respiratory distress, co-operative . Vitals reviewed and noted as below Head; Atraumatic, normocephalic ENT: no ulcers no thrush. Tongue is midline. Oropharynx: no rash or ulcers. EYES: Pupils are equal, round and reactive to light accommodation. Eye muscles and extraocular movement intact. Sclera is anicteric. Neck; supple no lymphadenopathy, no thyromegaly or bruit. skin hyperpigmented Lungs: Normal respiratory rate/effort. Breath sounds bilateral equal and clear Heart: Normal rate. s1s2 normal. No rub or gallop. Extremities: no edema. No varicose veins, left foot toe painful swelling improved Neurological: Patient is alert, awake and oriented to person, place and time. No focal deficit. Strength bilateral appropriate and equal Skin: Warm and dry. Normal turgor. No rash. Palpitation: Normal elasticity for age Abdomen: Abdomen is soft. Bowel sounds +. There is no abdominal tenderness, no guarding/rigidity no organomegaly Psych: normal insight and normal affect/mood MSK: no joint tenderness or swelling. Digits and nails normal, no deformity : kidney or bladder not palpable Labs/imaging reviewed. Past medical history, past surgical history, family history, social history, allergy reviewed and noted as below Family hx: no hx of CKD. Rest non-contributory urine SG <1.005 urine osmol 195 and urine Na 35 TGL 39 TSH nor renal and bladder sono WNL Objective - Vital Signs/Intake and Output Vital Signs (last 24 hours): Temp Pulse Resp BP Pulse Ox 98.6 F 88 16 129/68 99 09/28/17 08:09 09/28/17 08:09 09/28/17 08:09 09/28/17 08:09 09/28/17 08:09 Intake and Output: 09/28/17 09/28/17 06:59 18:59 Intake Total 900 Output Total 550 Balance 350 - Medications Medications: Current Medications Aspirin (Ecotrin) 81 mg PO DAILY [facility] Last Admin: 09/28/17 10:53 Dose: 81 mg Clopidogrel Bisulfate (Plavix) 75 mg PO DAILY [facility] Last Admin: 09/28/17 10:53 Dose: 75 mg Dextrose (Dextrose 50% Inj) 50 ml IVP ONCE PRN PRN Reason: Other Duloxetine HCl (Cymbalta) 60 mg PO DAILY [facility] Last Admin: 09/28/17 10:52 Dose: 60 mg Famotidine (Pepcid) 40 mg PO HS [facility] Last Admin: 09/27/17 21:34 Dose: 40 mg Gabapentin (Neurontin) 300 mg PO TID [facility] PRN Reason: Protocol Last Admin: 09/28/17 10:52 Dose: 300 mg Hydralazine HCl (Apresoline) 10 mg IVP Q6 PRN PRN Reason: Systolic Blood Pressure Iron Sucrose 100 mg/ Sodium (Chloride) 105 mls @ 210 mls/hr IVPB DAILY [facility] Stop: 10/01/17 15:16 Last Admin: 09/28/17 12:55 Dose: 210 mls/hr Sodium Chloride (Sodium Chloride 0.9%) 1,000 mls @ 75 mls/hr IV .[id number] [facility] Stop: 09/29/17 09:16 Last Admin: 09/28/17 12:54 Dose: 75 mls/hr Insulin Human Lispro (Humalog Med) 0 units SC ACHS [facility] PRN Reason: Protocol Last Admin: 09/28/17 12:00 Dose: Not Given Prednisone (Prednisone Tab) 0 mg PO DAILY [facility] PRN Reason: Taper Stop: 10/06/17 09:59 - Labs Labs: 09/28/17 06:35 09/28/17 06:35 PT 12.1 SECONDS (9.4-12.5) 09/25/17 22:11 INR 1.06 (0.93-1.08) 09/25/17 22:11 APTT 32.0 Seconds (25.1-36.5) 09/25/17 22:11
[2017-09-28 17:07] VITALS: BP 151/84; PULSE 76; TEMP 98.4; O2SAT 100
[2017-09-28 18:48] LABS: CALCIUM 8.2 mg/dL (8.4-10.5)
--- NOTE | 2017-09-28 18:51 | CP.PCM.DIS ---
Provider - Provider Date of Admission: 09/26/17 00:31 Attending physician: Deni Rangel MD Primary care physician: Ronaldo Ramos MD Time Spent in preparation of Discharge (in minutes): 45 Diagnosis - Discharge Diagnosis (1) Dizziness Status: Acute (2) Hyperkalemia Status: Acute (3) Hypoglycemia Status: Acute (4) Hyponatremia Status: Acute (5) PEDRO (acute kidney injury) Status: Acute (6) CKD (chronic kidney disease) Status: Chronic (7) HTN (hypertension) Status: Chronic (8) Diabetes Status: Chronic (9) Gout Status: Chronic (10) Anemia Status: Chronic (11) Tonsil cancer Status: Chronic Hospital Course - Lab Results Lab Results: Most Recent Lab Values WBC 5.4 10^3/ul (4.5-11.0) 09/28/17 06:35 RBC 2.87 10^6/uL (3.5-6.1) L 09/28/17 06:35 Hgb 7.2 g/dL (14.0-18.0) L 09/28/17 06:35 Hct 21.4 % (42.0-52.0) L 09/28/17 06:35 MCV 74.6 fl (80.0-105.0) L 09/28/17 06:35 MCH 25.1 pg (25.0-35.0) 09/28/17 06:35 MCHC 33.6 g/dl (31.0-37.0) 09/28/17 06:35 RDW 14.2 % (11.5-14.5) 09/28/17 06:35 Plt Count 85 10^3/uL (120.0-450.0) L 09/28/17 06:35 MPV 9.9 fl (7.0-11.0) 09/28/17 06:35 Gran % 79.4 % (50.0-68.0) H 09/28/17 06:35 Lymph % (Auto) 7.0 % (22.0-35.0) L 09/28/17 06:35 [place] % (Auto) 11.6 % (1.0-6.0) H 09/28/17 06:35 Eos % (Auto) 2.0 % (1.5-5.0) 09/28/17 06:35 Baso % (Auto) 0.0 % (0.0-3.0) 09/28/17 06:35 Gran # 4.29 (1.4-6.5) 09/28/17 06:35 Lymph # 0.4 (1.2-3.4) L 09/28/17 06:35 [place] # 0.6 (0.1-0.6) 09/28/17 06:35 Eos # 0.1 (0.0-0.7) 09/28/17 06:35 Baso # 0.00 K/mm3 (0.0-2.0) 09/28/17 06:35 PT 12.1 SECONDS (9.4-12.5) 09/25/17 22:11 INR 1.06 (0.93-1.08) 09/25/17 22:11 APTT 32.0 Seconds (25.1-36.5) 09/25/17 22:11 Sodium 118 mmol/L (132-148) L* 09/28/17 15:32 Potassium 5.1 mmol/L (3.6-5.0) H 09/28/17 15:32 Chloride 86 mmol/L (98-107) L 09/28/17 15:32 Carbon Dioxide 26 mmol/L (21-33) 09/28/17 15:32 Anion Gap 11 (10-20) 09/28/17 15:32 BUN 31 mg/dL (7-21) H 09/28/17 15:32 Creatinine 1.9 mg/dl (0.8-1.5) H 09/28/17 15:32 Est GFR ( Amer) 43 09/28/17 15:32 Est GFR (Non-Af Amer) 36 09/28/17 15:32 POC Glucose (mg/dL) 120 mg/dL (65-110) H 09/28/17 16:58 Random Glucose 120 mg/dL (70-110) H 09/28/17 15:32 Hemoglobin A1c 5.7 % (4.2-6.5) 09/26/17 01:30 Serum Osmolality 246 mosm/kg (272-300) L 09/26/17 08:30 Calcium 8.2 mg/dL (8.4-10.5) L 09/28/17 15:32 Magnesium 1.7 mg/dL (1.7-2.2) 09/26/17 01:30 Iron 15 ug/dL (45-180) L 09/26/17 01:30 TIBC 283 ug/dL (261-462) 09/26/17 01:30 % Saturation 5 % (20-55) L 09/26/17 01:30 Total Bilirubin 0.4 mg/dL (0.2-1.3) 09/28/17 06:35 AST 26 U/L (17-59) 09/28/17 06:35 ALT 42 U/L (7-56) 09/28/17 06:35 Alkaline Phosphatase 81 U/L (38-126) 09/28/17 06:35 Lactate Dehydrogenase 355 U/L (333-699) 09/25/17 22:11 Total Creatine Kinase 59 U/L (35-230) 09/25/17 22:11 Troponin I < 0.01 ng/mL 09/25/17 22:11 Total Protein 5.9 g/dL (5.8-8.3) 09/28/17 06:35 Albumin 3.0 g/dL (3.0-4.8) 09/28/17 06:35 Globulin 2.9 gm/dL 09/28/17 06:35 Albumin/Globulin Ratio 1.0 (1.1-1.8) L 09/28/17 06:35 Triglycerides 39 mg/dL (35-160) 09/26/17 01:30 Cholesterol 118 mg/dL (130-200) L 09/26/17 01:30 LDL Cholesterol Direct 53 mg/dL (0-129) 09/26/17 01:30 HDL Cholesterol 47 mg/dL (29-60) 09/26/17 01:30 Free T4 0.98 ng/dL (0.78-2.19) 09/26/17 01:30 TSH 3rd Generation 2.53 mIU/mL (0.46-4.68) 09/26/17 01:30 Urine Color Straw (YELLOW) 09/26/17 00:09 Urine Appearance Clear (CLEAR) 09/26/17 00:09 Urine pH 7.0 (4.7-8.0) 09/26/17 00:09 Ur Specific [place] <= 1.005 (1.005-1.035) 09/26/17 00:09 Urine Protein Negative mg/dL (<30 mg/dL) 09/26/17 00:09 Urine Glucose (UA) Negative mg/dL (NEGATIVE) 09/26/17 00:09 Urine Ketones Negative mg/dL (NEGATIVE) 09/26/17 00:09 Urine Blood Negative (NEGATIVE) 09/26/17 00:09 Urine Nitrate Negative (NEGATIVE) 09/26/17 00:09 Urine Bilirubin Negative (NEGATIVE) 09/26/17 00:09 Urine Urobilinogen 0.2 E.U./dL (<1 E.U./dL) 09/26/17 00:09 Ur Leukocyte Esterase Negative Ivis/uL (NEGATIVE) 09/26/17 00:09 Urine Osmolality 192 mosm/kg (300-1000) L 09/26/17 00:22 Ur Random Sodium 35 meq/L 09/26/17 00:22 Ur Random Potassium 20.7 meq/L 09/26/17 00:22 - Hospital Course Hospital Course: Mr. 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 Patient noted that his blood sugar was 65 at the start of these symptoms at which point he drank sugar water. His BG at home improved to 75 and his symptoms resolved. States that his blood glucoses and blood pressures have been fluctuating throughout the day more frequently without any provoking event. In ED, patient was noted to be hyponatremic and hyperkalemic. EKG: NSR w/ no changes. Head ct: Nonspecific white matter changes. Neuro and Nephro were consulted. Echo: EF 69%, mild to mod pulm htn. MRI brain: unremarkable. MRA head /neck: L IC 60-79% senoses, large R vertebral artery, L hypoplastic vertebral artery. Neuro started patient on ASA/Plavix with intent to do CTA however patient in PEDRO. LDL was 53 and A1C was 5.7. TSH was wnl. Patient's dizziness had completely resolved and values were largely attributed to hypo-osmolar euvolemic hyponatremia 2/2 polydipsia as serum Osm and urine Osm were both decreased. Patient did complain of gouty pain during stay, and was started on his medications however colchicine was adjusted due to pain and instead was given prednisone. At time of discharge, patient offered no complaints and was instructed to make appointment with Dr. Montenegro @ [phone]. PAtient is prescribed ASA, Plavix and Lipitor and instructed about bleeding risk. Patient is medically cleared for discharge and will follow up with PMD. Discharge Exam - Head Exam Head Exam: NORMAL INSPECTION - Eye Exam Eye Exam: EOMI, Normal appearance, PERRL Pupil Exam: NORMAL ACCOMODATION - ENT Exam ENT Exam: Normal Exam - Neck Exam Neck exam: Normal Inspection - Respiratory Exam Respiratory Exam: NORMAL BREATHING PATTERN - Cardiovascular Exam Cardiovascular Exam: RRR, +S1, +S2 - GI/Abdominal Exam GI & Abdominal Exam: Soft. absent: Distended, Tenderness - Extremities Exam Extremities exam: normal inspection - Back Exam Back exam: NORMAL INSPECTION - Neurological Exam Neurological exam: Alert, CN II-XII Intact, Oriented x3 - Psychiatric Exam Psychiatric exam: Normal Affect, Normal Mood - Skin Skin Exam: Normal Color, Warm Discharge Plan - Discharge Medications Prescriptions: Aspirin [Ecotrin] 81 mg PO DAILY #30 tabec Atorvastatin [Lipitor] 40 mg PO DIN #30 tab Clopidogrel [Plavix] 75 mg PO DAILY #30 tab - Follow Up Plan Condition: FAIR Disposition: HOME/ ROUTINE Instructions: Hyponatremia (DC), Depression (DC), Hyperkalemia (DC), Hypertension (DC), Dizziness (GEN) Additional Instructions: 1. Pt is to fu with PMD/[facility] clinic within 3-5 days 2. Pt is to fu with Dr. Montenegro, Neurointerventionalist, 3. Pt is to Schedule CTA head and Neck as per Dr. Montenegro 4. Pt is welcomed to return to [facility] ED if symptoms change or worsen Referrals: Ronaldo Ramos [Primary Care Provider] - Flor Montenegro MD [Staff Provider] -
== END 2017-09-28 20:00 | disposition home or self-care (01) | DRG 640 ==
LOC: ED 21:35 → ERH 09-26 00:31 → 3RSO 09-27 00:45 → 5RNO 09-27 22:38
PROVIDERS: ADMIT Internal Medicine; ATTEND Hospitalist
DX: E87.1 Hypo-osmolality and hyponatremia (principal); A20.9 Plague, unspecified; N17.9 Acute kidney failure, unspecified; D69.6 Thrombocytopenia, unspecified; E11.22 Type 2 diabetes mellitus with diabetic chronic kidney disease; E11.649 Type 2 diabetes mellitus with hypoglycemia without coma; N18.3 Chronic kidney disease, stage 3 (moderate); E83.42 Hypomagnesemia; I27.20 Pulmonary hypertension, unspecified; E87.5 Hyperkalemia; I12.9 Hypertensive chronic kidney disease with stage 1 through stage 4 chronic kidney disease, or unspecified chronic kidney disease; R63.1 Polydipsia; M10.9 Gout, unspecified; I25.10 Atherosclerotic heart disease of native coronary artery without angina pectoris; E87.8 Other disorders of electrolyte and fluid balance, not elsewhere classified; R42 Dizziness and giddiness; D50.9 Iron deficiency anemia, unspecified; Z79.02 Long term (current) use of antithrombotics/antiplatelets; Z79.82 Long term (current) use of aspirin; Z79.899 Other long term (current) drug therapy; Z85.818 Personal history of malignant neoplasm of other sites of lip, oral cavity, and pharynx; Z92.21 Personal history of antineoplastic chemotherapy; Z92.3 Personal history of irradiation; Z95.5 Presence of coronary angioplasty implant and graft; R40.2412 Glasgow coma scale score 13-15, at arrival to emergency department